=== PATIENT | female | born 1955 | race Caucasian/White ===

== ENCOUNTER 2022-10-20 12:09 | Inpatient (IN) ==
[2022-10-20] MEDS ORDERED: ALBUT/IPRATROP 3MG/0.5MG NEB 3 ML VIAL NEB STA (13:20)
[2022-10-20 13:43] LABS: Hematocrit (blood only) 43.8 % (37.0-47.0); Hemoglobin 15.2 g/dl (12.0-16.0); Mean Corpuscular Hemoglobin 30.2 pg (25.0-34.0); Mean Corpuscular Hgb Conc 34.7 g/dL (32.0-36.0); Mean Corpuscular Volume 87.1 fL (80.0-100.0); Mean Platelet Volume 10.7 fL (9.4-12.4); Platelet Count 308 K/uL (130-400); RDW Coefficient of Variation 14.5 % (11.5-14.5); RDW Standard Deviation 45.7 fL (36.4-46.3); Red Blood Count 5.03 M/uL (4.20-5.40); White Blood Count 23.38 K/ul (4.8-10.8)
[2022-10-20 14:00] LABS: Basophils # (auto) 0.03 K/uL (0-0.2); Basophils % (auto) 0.1 %; Eosinophils # (auto) 0.02 K/uL (0-0.50); Eosinophils % (auto) 0.1 %; Immature Granulocytes # (auto) 0.14 K/uL (0.01-0.20); Immature Granulocytes % (auto) 0.6 %; Lymphocytes % (auto) 4.7 %; Monocytes # (auto) 0.66 K/uL (0.11-0.59); Monocytes % (auto) 2.8 %; Neutrophils # (auto) 21.43 K/uL (1.40-6.50); Neutrophils % (auto) 91.7 %
[2022-10-20 14:01] LABS: Albumin Globulin Ratio 1.8 (0.9-2); Albumin Level 4.2 gm/dl (3.4-5.0); BUN Creatinine Ratio 23.1 (10-20); Bilirubin,Total 0.5 mg/dl (0.2-1.0); Calcium 10.5 mg/dl (8.6-10.3); Est GFR (African American) 54.4 ml/min; Est GFR (Non-African American) 46.9 ml/min; Globulin 2.4 gm/dl (2.5-4.0); Potassium 4.6 mmol/L (3.5-5.1); Total Protein 6.6 gm/dl (6.0-8.3)
[2022-10-20 14:04] LABS: Troponin I High Sensitivity 7.1 pg/ml (0-14)
[2022-10-20 14:38] LABS: Adenovirus PCR Not Detected (NotDetected); Bordetella parapertussis PCR Not Detected (NotDetected); Bordetella pertussis PCR Not Detected (NotDetected); Chlamydia pneumoniae PCR Not Detected (NotDetected); Coronavirus 229E PCR Not Detected (NotDetected); Coronavirus CoV-2 (COVID19)PCR Not Detected (NotDetected); Coronavirus HKU1 PCR Not Detected (NotDetected); Coronavirus NL63 PCR Not Detected (NotDetected); Coronavirus OC43PCR Not Detected (NotDetected); Human Metapneumovirus PCR Not Detected (NotDetected); Influenza A PCR Not Detected (NotDetected); Influenza B PCR Not Detected (NotDetected); Mycoplasma pneumoniae PCR Not Detected (NotDetected); Parainfluenza Virus 1 PCR Not Detected (NotDetected); Parainfluenza Virus 2 PCR Not Detected (NotDetected); Parainfluenza Virus 3 PCR Not Detected (NotDetected); Parainfluenza Virus 4 PCR Not Detected (NotDetected); Respiratory Syncytial VirusPCR Not Detected (NotDetected)
[2022-10-20 14:46] LABS: Rhinovirus/Enterovirus PCR DETECTED (NotDetected)
[2022-10-20] MEDS ORDERED: OPTIRAY 320 125ml IV ONE (15:07)
--- NOTE | 2022-10-20 15:26 | CT Scan Report ---
CT ANGIOGRAM OF THE CHEST CLINICAL HISTORY: Dyspnea COMPARISON STUDY: Chest x-ray dated 10/13/2022. TECHNIQUE: Following the IV administration of 77 cc of Optiray 320, CT angiogram of the chest was per formed from the upper abdomen to the thoracic inlet utilizing the pulmonary embolus protocol. Images are reviewed in the axial, sagittal, and coronal planes. 3-D MIPS images are created and assessed. IV contrast was administered without complication. A dose lowering technique was utilized adhering to the principles of ALARA. CT DOSE: 874.55 mGy.cm FINDINGS: Thyroid: Imaged portions of the thyroid gland are normal in size and attenuation. Thoracic aorta: There is advanced atherosclerotic calcification of the thoracic aorta, which is aida l in caliber and demonstrates bovine variant arch anatomy. No dissection is seen. Pulmonary vasculature: The pulmonary trunk is normal in caliber. There are no filling defects identif ied in main, lobar, or segmental pulmonary branches to suggest pulmonary embolus. Heart: The heart is mildly enlarged and without pericardial effusion. The coronary arteries are dense ly calcified. Lungs and pleural spaces: Evaluation of the lung parenchyma is compromised by motion artifact. Emphys ematous changes observed. The trachea and central airways are clear. There is no airspace consolidati on typical for pneumonia or pleural effusion. Scarring/atelectasis is noted at the lung bases. There is a 9 mm ovoid nodule in the right lower lobe seen on image #129. A branching nodular opacity in the right middle lobe on image #1 measuring 10 likely represents an impacted bronchus. Mediastinum: There is no mediastinal lymphadenopathy. Kaitlin: Clear. Axillae: There is no axillary lymphadenopathy. Upper abdomen: There is a small hiatal hernia. There is mild nodular thickening of the adrenal glands . Partially visualized upper abdominal viscera is otherwise grossly unremarkable. Skeletal structures: The skeletal structures are osteopenic. Degenerative change and mild hyperkyphos is is seen in the thoracic spine. No lytic or blastic bony lesions are seen. IMPRESSION: 1. There is no evidence of pulmonary embolus in the main, lobar, or segmental pulmonary arteries. 2. Emphysema. 3. Cardiomegaly with advanced coronary artery atherosclerosis. 4. There is no airspace consolidation or pleural effusion. 5. There is a 9 mm ovoid right lower lobe pulmonary nodule. This is pathologically indeterminate, and follow-up is recommended as per the Fleischner criteria. See below. Please refer to below summary of Fleischner criteria recommendations for follow-up of incidental CT n odules (Jen Owen, Guidelines for management of small pulmonary nodules detected on CT scans: A janet townsend from the Fleischner [employer], Radiology 237: [phone].) SOLID NODULES Solitary nodule size: <6 mm * low risk patients: no follow-up needed * high risk patients: optional CT at 12 months Solitary nodule size: 6-8 mm * low risk patients: follow-up at 6-12 months, then consider further follow-up at 18-24 months * high risk patients: initial follow-up CT at 6-12 months and then at 18-24 months if no change Solitary nodule size: >8 mm * either low or high risk patients - consider follow-up CT at 3 months, and/or CT-PET, and/or biopsy Multiple nodules size: <6 mm * low risk patients: no routine follow-up * high risk patients: optional CT at 12 months Multiple nodules size: 6-8 mm * low risk patients: follow-up at 3-6 months, then consider further follow-up at 18-24 months * high risk patients: follow-up at 3-6 months, then at 18-24 months if no change Multiple nodules size: >8 mm * low risk patients: follow-up at 3-6 months, then consider further follow-up at 18-24 months * high risk patients: follow-up at 3-6 months, then at 18-24 months if no change Note: newly detected indeterminate nodule in persons 35 years of age or older. * low risk patients: minimal or absent history of smoking and/or other known risk factors * high risk patients: history of smoking or of other known risk factors (e.g. first degree relative with lung cancer, or exposure to asbestos, radon, uranium) * if a nodule up to 8 mm is partly solid or is ground glass further follow-up is required after 24 m onths to exclude possible slow growing adenocarcinoma (YANIRA) SUBSOLID NODULES Solitary pure ground-glass nodule * nodule size <6 mm - no CT follow-up required * nodule size >=6 mm - follow-up CT at 6-12 months, then every 2 years until 5 years Solitary part-solid nodule * nodule size <6 mm - no CT follow-up required * nodule size >=6 mm - follow-up CT at 3-6 months. If unchanged, and solid component remains <6 mm, then annual follow-up for 5 years Multiple subsolid nodules * nodule size <6 mm - follow-up CT at 3-6 months, consider further follow-up at 2 and 4 years if sta ble * nodule size >=6 mm - follow-up CT at 3-6 months, subsequent management based on the most suspiciou s nodule(s) ACT 112: Negative or not required by law. Electronically signed by: Patrick Kathleen M.D. 10/20/2022 3:24 PM
[2022-10-20] MEDS ORDERED: methylPREDNISolone 125 MG/2 ML VIAL IV STA (16:26)
--- NOTE | 2022-10-20 16:28 | History & Physical Report ---
Date of Service October 20, 2022 Assessment & Plan (1) Reactive airway disease with wheezing: Plan: Secondary to entero/rhinovirus positive Suspect underlying COPD/asthma - consider follow up outpatient pulmonary function testing once improved Suspect failed outpatient treatment due to continued smoking, outside air quality and non-compliance with albuterol inhaler Solu-Medrol 125mg IV given in ER, continue 40mg IV BID Duonebs QID Could consider Breo Ellipta once oral thrush improved (2) Hypoxia: Plan: No respiratory distress Suspect due to reactive airway disease as above Aim O2 sats > 88% (3) Oral candidiasis: Plan: Clotrimazole x5/day (4) Vaginal candidiasis: Plan: Fluconazole 150mg PO + Monistat (5) Psoriasis: Plan: Untreated, although recently improved (suspect due to summer weather and recent systemic steroids) Start topical steroids for this as needed (6) Sleep apnea: Plan: Intolerant to CPAP at home, does not use one usually. Will trial CPAP HS here (7) Benign essential hypertension: Plan: Continue amlodipine and losartan (8) Tobacco use disorder: Plan: Nicotine patch ordered Discussed smoking cessation as essential to her improving Plan VTE Prophylaxis - heparin 5000 units SQ q8h Diet - regular Disposition - admit to med/surg Admission and Anticipated Discharge Date Admission Date: October 20, 2022 History of Present Illness Chief Complaint: Shortness of breath Primary Care Provider: Liudmila Josue MD Yu Daigle is a 67 year old female who presents to the ER shortness of cyndee th ongoing for three weeks. No diagnosed COPD or asthma but reports getting "asthma" sometimes when she gets a bad cold. Initially she requested azithromycin on September 13 due to sinus and chest congestion. She reported no significant improvement with this. Subsequently she was placed on prednisone taper and doxycycline on September 29 after visit at her PCP office. CXR at that time did not show a pneumonia. Reportedly using her husbands Combivent inhaler without improvement as well. She was given nebulized duoneb and Solu-medrol IM injection in the office on October 13 and restarted on prednisone taper with Levaquin. She returns today as still wheezing and was advised to go to the ER as oxygen saturation also in the high 80s which is unusual for her. She reports mouth pain for the last week and felt this was due to her albuterol inhaler therefore stopped taking this. Despite her shortness of breath she continues to smoke 1-1.5 packs/day. Allergies Allergy/AdvReac Type Severity Reaction Status Date / Time morphine Allergy Intermediate itching Verified 10/20/22 15:27 oxycodone AdvReac Intermediate Nausea/Vomi Verified 10/20/22 15:27 ting Home Medications Medication Instructions Recorded Confirmed Type cholecalciferol (vitamin D3) 50 2,000 units PO DAILY 02/19/19 10/20/22 History mcg (2,000 unit) capsule lorazepam 0.5 mg tablet (Ativan) 0.5 mg PO BID PRN anxiety #30 tabs 11/24/21 10/20/22 Rx escitalopram oxalate 20 mg tablet 20 mg PO DAILY #90 tabs 03/28/22 10/20/22 Rx amlodipine 10 mg tablet 10 mg PO DAILY #90 tabs 05/18/22 10/20/22 Rx spironolactone 50 mg tablet 50 mg PO QAM #90 tabs 05/18/22 10/20/22 Rx losartan 100 mg tablet 100 mg PO DAILY #90 tabs 06/08/22 10/20/22 Rx levofloxacin 750 mg tablet 750 mg PO DAILY 7 days #7 tabs 10/13/22 10/20/22 Rx prednisone 20 mg tablet See Rx Instructions PO .COMPLEX 10/13/22 10/20/22 Rx #30 tabs aspirin 81 mg chewable tablet 81 mg PO DAILY 10/20/22 10/20/22 History hydrocodone 5 mg-acetaminophen 325 1 tab PO .Q4-6H PRN pain 10/20/22 10/20/22 History mg tablet Past Med/Surg History Medical History Benign essential hypertension Depression with anxiety Sleep apnea Surgical History History of section History of hip replacement Bilateral Family History Other Breast cancer Myocardial infarction Denies family history of Ovarian cancer Prostate cancer Colorectal cancer Social History Smoking Status: Current every day smoker packs per day: 1.5; Second Hand Exposure: Yes; Do You Dip or Chew Tobacco: No; Tobacco Cessation Education Requested by Patient: No Hx Alcohol Use: Yes Alcohol Intake Frequency: Monthly or Less Hx Substance Use: Yes Prescribed Medications: Marijuana Preferred Language: Zambian Visual Impairment: No Limitations Hearing Ability: Normal E Marketing Specialist Required: No Beliefs That Will Affect Care: None marital status: Current Living Situation: Spouse current occupational status: retired current occupation: Homemaker How many Children do You have: 4 Other Information That Helps Us Care for You: No Feels Safe at Home: Yes Childhood Exposure to Second-Hand Smoke: No Diet: regular caffeine: Yes (Tea ) during the past year weight has: remained stable Dental Care, Regularly: No Physical Activity Frequency: 1-2 Times per Week Seatbelt Use: always Sunscreen Use: Yes Do you think of yourself as: straight/heterosexual Gender Identity: Female Assistive Devices: Denture - Upper and Denture - Lower Review of Systems Review of Systems: All systems reviewed & are unremarkable except as noted in HPI & below Physical Exam Constitutional: WD/WN, vitals as above Eyes: PERRL, conjunctivae normal, anicteric sclerae ENMT: external ear and nose normal, oropharynx normal Respiratory: normal respiratory effort; no respiratory distress Auscultation: + wheezes (expiratory throughout); no diminished lung sounds, no crackles, no rales and no rhonchi Cardiovascular: RRR, no murmur, no edema Gastrointestinal (Abdomen): normal bowel sounds, soft, nontender, no hepatosplenomegaly Musculoskeletal: no cyanosis or clubbing, extremities motor strength 5/5 Skin: no rashes, warm and dry Neurologic: moves all extremities and awake; not confused Psychiatric: A+Ox3, euthymic affect Results & Data Results & Data Vital Signs (Past 12 Hours) Vital Signs Temp Pulse Pulse Pulse Resp Resp BP 10/20/22 16:20 75 15 10/20/22 16:10 80 18 10/20/22 16:00 76 19 10/20/22 16:00 135/62 10/20/22 15:50 78 16 10/20/22 15:40 76 24 10/20/22 15:30 81 20 10/20/22 15:21 142/66 H 10/20/22 15:21 81 20 10/20/22 14:40 79 15 10/20/22 14:30 82 19 06/30/23 14:20 89 17 10/20/22 14:10 84 17 10/20/22 14:00 82 17 10/20/22 14:00 127/63 10/20/22 13:50 83 21 10/20/22 13:40 83 19 10/20/22 13:34 83 16 10/20/22 14:20 10/20/22 14:20 10/20/22 14:04 83 18 10/20/22 13:46 80 10/20/22 13:27 93 H 18 10/20/22 12:56 10/20/22 13:05 104 H 18 10/20/22 12:23 36.6 C 102 H 18 123/54 L BP Pulse Ox Pulse Ox O2 Del Method O2 Flow Rate 10/20/22 16:20 94 10/20/22 16:10 95 10/20/22 16:00 94 10/20/22 16:00 10/20/22 15:50 94 10/20/22 15:40 95 10/20/22 15:30 93 10/20/22 15:21 10/20/22 15:21 92 10/20/22 14:40 95 10/20/22 14:30 95 10/20/22 14:20 94 10/20/22 14:10 93 10/20/22 14:00 93 10/20/22 14:00 10/20/22 13:50 92 10/20/22 13:40 98 10/20/22 13:34 98 10/20/22 14:20 93 Nasal Cannula 2 10/20/22 14:20 88 L Room Air 10/20/22 14:04 127/63 90 Room Air 10/20/22 13:46 10/20/22 13:27 138/72 93 Room Air 10/20/22 12:56 93 Room Air 10/20/22 13:05 88 L Room Air 0 10/20/22 12:23 93 Room Air Laboratory Results Abnormal lab results 10/20/22 10/20/22 10/20/22 Range/Units 13:23 13:23 13:23 WBC 23.38 H (4.8-10.8) K/ul Neut # (Auto) 21.43 H (1.40-6.50) K/uL Lymph # (Auto) 1.10 L (1.2-3.4) K/uL Wilcox # (Auto) 0.66 H (0.11-0.59) K/uL Sodium 131 L (136-145) mmol/L Chloride 95 L (98-107) mmol/L BUN 28 H (6-23) mg/dl Creatinine 1.21 H (0.6-1.2) mg/dl BUN/Creatinine Ratio 23.1 H (10-20) Glucose 198 H (70-99(Fasting)) mg/dl Calcium 10.5 H (8.6-10.3) mg/dl AST 12 L (13-39) U/L Globulin 2.4 L (2.5-4.0) gm/dl Entero/Rhino (PCR) DETECTED A* (NotDetected) Diagnostic Findings XR chest 2V PA/lateral HISTORY: 67 years-old Female R06.2 - Wheezing acute shortness of breath COMPARISON: 09/29/2022 TECHNIQUE: PA and lateral views of the chest FINDINGS: Cardiac silhouette is enlarged. Atherosclerosis of the aorta. No pneumothorax, pleural effusion, airspace consolidation or pulmonary edema. Degenerative changes of the shoulders and spine. IMPRESSION: No acute process. CT ANGIOGRAM OF THE CHEST CLINICAL HISTORY: Dyspnea COMPARISON STUDY: Chest x-ray dated 10/13/2022. TECHNIQUE: Following the IV administration of 77 cc of Optiray 320, CT angiogram of the chest was performed from the upper abdomen to the thoracic inlet utilizing the pulmonary embolus protocol. Images are reviewed in the axial, sagittal, and coronal planes. 3-D MIPS images are created and assessed. IV contrast was administered without complication. A dose lowering technique was utilized adhering to the principles of ALARA. CT DOSE: 874.55 mGy.cm FINDINGS: Thyroid: Imaged portions of the thyroid gland are normal in size and attenuation. Thoracic aorta: There is advanced atherosclerotic calcification of the thoracic aorta, which is normal in caliber and demonstrates bovine variant arch anatomy. No dissection is seen. Pulmonary vasculature: The pulmonary trunk is normal in caliber. There are no filling defects identified in main, lobar, or segmental pulmonary branches to suggest pulmonary embolus. Heart: The heart is mildly enlarged and without pericardial effusion. The coronary arteries are densely calcified. Lungs and pleural spaces: Evaluation of the lung parenchyma is compromised by motion artifact. Emphysematous changes observed. The trachea and central airways are clear. There is no airspace consolidation typical for pneumonia or pleural effusion. Scarring/atelectasis is noted at the lung bases. There is a 9 mm ovoid nodule in the right lower lobe seen on image #129. A branching nodular opacity in the right middle lobe on image #1 measuring 10 likely represents an impacted bronchus. Mediastinum: There is no mediastinal lymphadenopathy. Kaitlin: Clear. Axillae: There is no axillary lymphadenopathy. Upper abdomen: There is a small hiatal hernia. There is mild nodular thickening of the adrenal glands. Partially visualized upper abdominal viscera is otherwise grossly unremarkable. Skeletal structures: The skeletal structures are osteopenic. Degenerative change and mild hyperkyphosis is seen in the thoracic spine. No lytic or blastic bony lesions are seen. IMPRESSION: 1. There is no evidence of pulmonary embolus in the main, lobar, or segmental pulmonary arteries. 2. Emphysema. 3. Cardiomegaly with advanced coronary artery atherosclerosis. 4. There is no airspace consolidation or pleural effusion. 5. There is a 9 mm ovoid right lower lobe pulmonary nodule. This is pathologically indeterminate, and follow-up is recommended as per the Fleischner criteria. See below. Medications Administered ER Medications Given: Duoneb 3ml Methylprednisolone 125mg IV ECG Rate (beats per minute): 88 Rhythm: sinus with SA Findings: no acute ischemic change Comparison ECG Date: no prior available Change: the following changes noted (December 20, 2010) Code Status & VTE Plan Code Status Full VTE Prophylaxis Plan VTE Prophylaxis will be ordered: Yes PG Care Time/CCT Total # of Minutes Spent Total Time Spent with Patient: Total time spent is greater than 50% in coordination of care (as documented) at patient's floor/unit and/or counseling patient: Coding Level of Care Code 87705 INT INP/OBS CARE 3/75MIN Diagnoses Reactive airway disease with wheezing J45.909 Hypoxia R09.02 Oral candidiasis B37.0 Vaginal candidiasis B37.31 Psoriasis L40.9 Sleep apnea G47.30 Benign essential hypertension I10 Tobacco use disorder F17.200
[2022-10-20] MEDS ORDERED: NYSTATIN SUSP 500,000 U/5 ML UDC PO STA (16:44)
--- NOTE | 2022-10-20 17:01 | Emergency Department Note ---
ED Provider Note History of Present Illness Chief Complaint: Respiratory Problems Stated Complaint: RESP. ISSUES, TO BE ADMITTED,DOC REF Time Seen by Provider: 10/20/22 12:27 Source: patient Mode of arrival: ambulatory Limitations: no limitations This patient is a 67-year-old female who presents to the emergency department for evaluation of shortness of breath. Patient states the symptoms have been ongoing for about 3 weeks. She has been seen as an outpatient and has been on several antibiotics, azithromycin, doxycycline and Levaquin. She is on her second course of steroids. She has been seeing her primary care provider for the symptoms. She went there today and they referred her here for possible admission due to low oxygen levels in the office. Patient does report a history of COPD. She is a smoker. She has been trying to stay inside and avoid going outside due to the decreased air quality over the past few days. She reports that she is short of breath with any exertion and is very winded going up the stairs. She denies any chest pain. She denies any fever/chills. She has had a persistent cough and nasal congestion. Home Medications Medication Instructions Recorded Confirmed Type cholecalciferol (vitamin D3) 50 2,000 units PO DAILY 02/19/19 10/20/22 History mcg (2,000 unit) capsule lorazepam 0.5 mg tablet (Ativan) 0.5 mg PO BID PRN anxiety #30 tabs 11/24/21 10/20/22 Rx escitalopram oxalate 20 mg tablet 20 mg PO DAILY #90 tabs 03/28/22 10/20/22 Rx amlodipine 10 mg tablet 10 mg PO DAILY #90 tabs 05/18/22 10/20/22 Rx spironolactone 50 mg tablet 50 mg PO QAM #90 tabs 05/18/22 10/20/22 Rx losartan 100 mg tablet 100 mg PO DAILY #90 tabs 06/08/22 10/20/22 Rx levofloxacin 750 mg tablet 750 mg PO DAILY 7 days #7 tabs 10/13/22 10/20/22 Rx prednisone 20 mg tablet See Rx Instructions PO .COMPLEX 10/13/22 10/20/22 Rx #30 tabs aspirin 81 mg chewable tablet 81 mg PO DAILY 10/20/22 10/20/22 History hydrocodone 5 mg-acetaminophen 325 1 tab PO .Q4-6H PRN pain 10/20/22 10/20/22 History mg tablet Allergies Allergy/AdvReac Type Severity Reaction Status Date / Time morphine Allergy Intermediate itching Verified 10/20/22 15:27 oxycodone AdvReac Intermediate Nausea/Vomi Verified 10/20/22 15:27 ting Past Med/Surg History Medical History Benign essential hypertension Depression with anxiety Sleep apnea Surgical History History of section History of hip replacement Bilateral Family History Other Breast cancer Myocardial infarction Denies family history of Ovarian cancer Prostate cancer Colorectal cancer Social History Smoking Status: Current every day smoker packs per day: 1.5; Second Hand Exposure: Yes; Do You Dip or Chew Tobacco: No; Tobacco Cessation Education Requested by Patient: No Hx Alcohol Use: Yes Alcohol Intake Frequency: Monthly or Less Hx Substance Use: Yes Prescribed Medications: Marijuana Preferred Language: Hebrew Visual Impairment: No Limitations Hearing Ability: Normal Safe And Vault Service Mechanic Required: No Beliefs That Will Affect Care: None marital status: Current Living Situation: Spouse current occupational status: retired current occupation: Homemaker How many Children do You have: 4 Other Information That Helps Us Care for You: No Feels Safe at Home: Yes Childhood Exposure to Second-Hand Smoke: No Diet: regular caffeine: Yes (Tea ) during the past year weight has: remained stable Dental Care, Regularly: No Physical Activity Frequency: 1-2 Times per Week Seatbelt Use: always Sunscreen Use: Yes Do you think of yourself as: straight/heterosexual Gender Identity: Female Assistive Devices: Denture - Upper and Denture - Lower Physical Exam Vital Signs Vital Signs - 24 hr 10/20/22 12:23 10/20/22 13:05 10/20/22 12:56 Temperature 36.6 C Temperature Source Temporal Artery Scan Pulse Rate 102 H Pulse Rate [Apical] Pulse Rate [Exercises] 104 H Pulse Rate from SpO2 Sensor Respiratory Rate 18 Respiratory Rate [Exercises] 18 Respiratory Effort / Characteristics Non-Labored Respiratory Depth Normal Blood Pressure 123/54 L Blood Pressure [Left Arm] Blood Pressure Mean 77 Blood Pressure Mean [Left Arm] Pulse Oximetry 93 93 Pulse Oximetry [Exercises] 88 L Oxygen Delivery Method Room Air Room Air Room Air Oxygen Flow Rate 0 Sepsis Recent Fever Within 48 Hours No Sepsis New/Unexplained Change in Mental Status No Sepsis Action Taken by Nursing No Action Required 10/20/22 13:27 10/20/22 13:46 10/20/22 14:04 Temperature Temperature Source Pulse Rate 80 Pulse Rate [Apical] 93 H 83 Pulse Rate [Exercises] Pulse Rate from SpO2 Sensor Respiratory Rate 18 18 Respiratory Rate [Exercises] Respiratory Effort / Characteristics Respiratory Depth Normal Blood Pressure Blood Pressure [Left Arm] 138/72 127/63 Blood Pressure Mean Blood Pressure Mean [Left Arm] 94 84 Pulse Oximetry 93 90 Pulse Oximetry [Exercises] Oxygen Delivery Method Room Air Room Air Oxygen Flow Rate Sepsis Recent Fever Within 48 Hours Sepsis New/Unexplained Change in Mental Status Sepsis Action Taken by Nursing 10/20/22 14:20 10/20/22 14:20 10/20/22 13:34 Temperature Temperature Source Pulse Rate 83 Pulse Rate [Apical] Pulse Rate [Exercises] Pulse Rate from SpO2 Sensor 82 Respiratory Rate 16 Respiratory Rate [Exercises] Respiratory Effort / Characteristics Respiratory Depth Blood Pressure Blood Pressure [Left Arm] Blood Pressure Mean Blood Pressure Mean [Left Arm] Pulse Oximetry 88 L 93 98 Pulse Oximetry [Exercises] Oxygen Delivery Method Room Air Nasal Cannula Oxygen Flow Rate 2 Sepsis Recent Fever Within 48 Hours Sepsis New/Unexplained Change in Mental Status Sepsis Action Taken by Nursing 10/20/22 13:40 10/20/22 13:50 10/20/22 14:00 Temperature Temperature Source Pulse Rate 83 83 Pulse Rate [Apical] Pulse Rate [Exercises] Pulse Rate from SpO2 Sensor 80 83 Respiratory Rate 19 21 Respiratory Rate [Exercises] Respiratory Effort / Characteristics Respiratory Depth Blood Pressure 127/63 Blood Pressure [Left Arm] Blood Pressure Mean 93 Blood Pressure Mean [Left Arm] Pulse Oximetry 98 92 Pulse Oximetry [Exercises] Oxygen Delivery Method Oxygen Flow Rate Sepsis Recent Fever Within 48 Hours Sepsis New/Unexplained Change in Mental Status Sepsis Action Taken by Nursing 10/20/22 14:00 10/20/22 14:10 10/20/22 14:20 Temperature Temperature Source Pulse Rate 82 84 89 Pulse Rate [Apical] Pulse Rate [Exercises] Pulse Rate from SpO2 Sensor 82 83 88 Respiratory Rate 17 17 17 Respiratory Rate [Exercises] Respiratory Effort / Characteristics Respiratory Depth Blood Pressure Blood Pressure [Left Arm] Blood Pressure Mean Blood Pressure Mean [Left Arm] Pulse Oximetry 93 93 94 Pulse Oximetry [Exercises] Oxygen Delivery Method Oxygen Flow Rate Sepsis Recent Fever Within 48 Hours Sepsis New/Unexplained Change in Mental Status Sepsis Action Taken by Nursing 10/20/22 14:30 10/20/22 14:40 10/20/22 15:21 Temperature Temperature Source Pulse Rate 82 79 81 Pulse Rate [Apical] Pulse Rate [Exercises] Pulse Rate from SpO2 Sensor 80 77 80 Respiratory Rate 19 15 20 Respiratory Rate [Exercises] Respiratory Effort / Characteristics Respiratory Depth Blood Pressure Blood Pressure [Left Arm] Blood Pressure Mean Blood Pressure Mean [Left Arm] Pulse Oximetry 95 95 92 Pulse Oximetry [Exercises] Oxygen Delivery Method Oxygen Flow Rate Sepsis Recent Fever Within 48 Hours Sepsis New/Unexplained Change in Mental Status Sepsis Action Taken by Nursing 10/20/22 15:21 10/20/22 15:30 10/20/22 15:40 Temperature Temperature Source Pulse Rate 81 76 Pulse Rate [Apical] Pulse Rate [Exercises] Pulse Rate from SpO2 Sensor 81 76 Respiratory Rate 20 24 Respiratory Rate [Exercises] Respiratory Effort / Characteristics Respiratory Depth Blood Pressure 142/66 H Blood Pressure [Left Arm] Blood Pressure Mean 97 Blood Pressure Mean [Left Arm] Pulse Oximetry 93 95 Pulse Oximetry [Exercises] Oxygen Delivery Method Oxygen Flow Rate Sepsis Recent Fever Within 48 Hours Sepsis New/Unexplained Change in Mental Status Sepsis Action Taken by Nursing 10/20/22 15:50 10/20/22 16:00 10/20/22 16:00 Temperature Temperature Source Pulse Rate 78 76 Pulse Rate [Apical] Pulse Rate [Exercises] Pulse Rate from SpO2 Sensor 78 76 Respiratory Rate 16 19 Respiratory Rate [Exercises] Respiratory Effort / Characteristics Respiratory Depth Blood Pressure 135/62 Blood Pressure [Left Arm] Blood Pressure Mean 92 Blood Pressure Mean [Left Arm] Pulse Oximetry 94 94 Pulse Oximetry [Exercises] Oxygen Delivery Method Oxygen Flow Rate Sepsis Recent Fever Within 48 Hours Sepsis New/Unexplained Change in Mental Status Sepsis Action Taken by Nursing 10/20/22 16:10 10/20/22 16:20 10/20/22 16:30 Temperature Temperature Source Pulse Rate 80 75 78 Pulse Rate [Apical] Pulse Rate [Exercises] Pulse Rate from SpO2 Sensor 79 75 77 Respiratory Rate 18 15 16 Respiratory Rate [Exercises] Respiratory Effort / Characteristics Respiratory Depth Blood Pressure Blood Pressure [Left Arm] Blood Pressure Mean Blood Pressure Mean [Left Arm] Pulse Oximetry 95 94 94 Pulse Oximetry [Exercises] Oxygen Delivery Method Oxygen Flow Rate Sepsis Recent Fever Within 48 Hours Sepsis New/Unexplained Change in Mental Status Sepsis Action Taken by Nursing VITALS: Vitals are noted on the nurse's note and reviewed by myself. GENERAL: This is a 67-year-old female, in no acute distress. SKIN: The skin was without rashes. EARS: External auditory canals clear, tympanic membranes pearly lopez without erythema or effusion bilaterally. MOUTH: Mucous membranes moist. NECK: Supple without nuchal rigidity. No lymphadenopathy. HEART: Regular rate and rhythm without murmurs gallops or rubs. LUNGS: Diffuse wheezes throughout. NEURO: Patient was alert and oriented to person place and time. Course Administered Medications Albuterol (Albut/Ipratrop 3mg/0.5mg Neb 3 Ml Vial) 3 ml NEB Q4R CYNDY; Protocol Stop: 11/19/22 18:59 Last Admin: 10/20/22 19:37 Dose: 3 ml Documented By: HMR Discontinued Medications Albuterol (Albut/Ipratrop 3mg/0.5mg Neb 3 Ml Vial) 3 ml NEB NOW STA; Protocol Stop: 10/20/22 13:21 Last Admin: 10/20/22 13:30 Dose: 3 ml Documented By: TUNDE Sodium Chloride (Nss 1000ml) 1,000 mls @ 999 mls/hr IV .Q1H1M ONE Stop: 10/20/22 18:27 Last Admin: 10/20/22 19:22 Dose: 999 mls/hr Documented By: ASSISTED Ioversol (Optiray 320 125ml) 77 ml IV ONCE ONE Stop: 10/20/22 15:08 Last Admin: 10/20/22 15:07 Dose: 77 ml Documented By: PLB Methylprednisolone (Methylprednisolone 125 Mg/2 Ml Vial) 125 mg IV NOW STA Stop: 10/20/22 16:27 Last Admin: 10/20/22 17:15 Dose: 125 mg Documented By: BCN Medical Decision Making Differential Diagnosis Reactive airway disease, pneumonia, pneumothorax, COPD, CHF, infections, cardiac ischemia, pulmonary embolism, musculoskeletal, gastrointestinal, as well as other pathologies. Home Medications was personally reviewed by me Laboratory Data Attestation: I reviewed the patient's lab results. 10/20/22 13:23 10/20/22 13:23 Lab Results 10/20/22 10/20/22 10/20/22 Range/Units 13:23 13:23 13:23 WBC 23.38 H (4.8-10.8) K/ul RBC 5.03 (4.20-5.40) M/uL Hgb 15.2 (12.0-16.0) g/dl Hct 43.8 (37.0-47.0) % MCV 87.1 (80.0-100.0) fL MCH 30.2 (25.0-34.0) pg MCHC 34.7 (32.0-36.0) g/dL RDW Std Deviation 45.7 (36.4-46.3) fL RDW Coeff of [place] 14.5 (11.5-14.5) % Plt Count 308 (130-400) K/uL MPV 10.7 (9.4-12.4) fL Immature Gran % (Auto) 0.6 % Neut % (Auto) 91.7 % Lymph % (Auto) 4.7 % [place] % (Auto) 2.8 % Eos % (Auto) 0.1 % Baso % (Auto) 0.1 % Neut # (Auto) 21.43 H (1.40-6.50) K/uL Lymph # (Auto) 1.10 L (1.2-3.4) K/uL [place] # (Auto) 0.66 H (0.11-0.59) K/uL Eos # (Auto) 0.02 (0-0.50) K/uL Baso # (Auto) 0.03 (0-0.2) K/uL Immature Gran # (Auto) 0.14 (0.01-0.20) K/uL Sodium 131 L (136-145) mmol/L Potassium 4.6 (3.5-5.1) mmol/L Chloride 95 L (98-107) mmol/L Carbon Dioxide 28 (21-32) mmol/L Anion Gap 8 (3-11) BUN 28 H (6-23) mg/dl Creatinine 1.21 H (0.6-1.2) mg/dl Est Cr Clr Drug Dosing 44.0 ml/min Est GFR ( Amer) 54.4 ml/min Est GFR (Non-Af Amer) 46.9 ml/min BUN/Creatinine Ratio 23.1 H (10-20) Glucose 198 H (70-99(Fasting)) mg/dl Calcium 10.5 H (8.6-10.3) mg/dl Total Bilirubin 0.5 (0.2-1.0) mg/dl AST 12 L (13-39) U/L ALT 29 (7-52) U/L Alkaline Phosphatase 69 (34-104) U/L Troponin I High Sens 7.1 (0-14) pg/ml Total Protein 6.6 (6.0-8.3) gm/dl Albumin 4.2 (3.4-5.0) gm/dl Globulin 2.4 L (2.5-4.0) gm/dl Albumin/Globulin Ratio 1.8 (0.9-2) Procalcitonin < 0.05 (0-0.5) ng/ml Adenovirus (PCR) (NotDetected) B. pertussis DNA (PCR) (NotDetected) B.parapertussis DNA PCR (NotDetected) C. pneumoniae DNA (PCR) (NotDetected) Coronavirus OC43 (PCR) (NotDetected) Coronavirus HKU1 (PCR) (NotDetected) Coronavirus 229E (PCR) (NotDetected) SARS-CoV-2 (PCR) (NotDetected) Coronavirus NL63 (PCR) (NotDetected) Human Metapneumovir PCR (NotDetected) Influenza Type A (PCR) (NotDetected) Influenza Type B (PCR) (NotDetected) M. pneumoniae (PCR) (NotDetected) Parainfluenza 1 (PCR) (NotDetected) Parainfluenza 2 (PCR) (NotDetected) Parainfluenza 3 (PCR) (NotDetected) Parainfluenza 4 (PCR) (NotDetected) RSV (PCR) (NotDetected) Entero/Rhino (PCR) (NotDetected) 10/20/22 Range/Units 13:23 WBC (4.8-10.8) K/ul RBC (4.20-5.40) M/uL Hgb (12.0-16.0) g/dl Hct (37.0-47.0) % MCV (80.0-100.0) fL MCH (25.0-34.0) pg MCHC (32.0-36.0) g/dL RDW Std Deviation (36.4-46.3) fL RDW Coeff of [place] (11.5-14.5) % Plt Count (130-400) K/uL MPV (9.4-12.4) fL Immature Gran % (Auto) % Neut % (Auto) % Lymph % (Auto) % [place] % (Auto) % Eos % (Auto) % Baso % (Auto) % Neut # (Auto) (1.40-6.50) K/uL Lymph # (Auto) (1.2-3.4) K/uL [place] # (Auto) (0.11-0.59) K/uL Eos # (Auto) (0-0.50) K/uL Baso # (Auto) (0-0.2) K/uL Immature Gran # (Auto) (0.01-0.20) K/uL Sodium (136-145) mmol/L Potassium (3.5-5.1) mmol/L Chloride (98-107) mmol/L Carbon Dioxide (21-32) mmol/L Anion Gap (3-11) BUN (6-23) mg/dl Creatinine (0.6-1.2) mg/dl Est Cr Clr Drug Dosing ml/min Est GFR ( Amer) ml/min Est GFR (Non-Af Amer) ml/min BUN/Creatinine Ratio (10-20) Glucose (70-99(Fasting)) mg/dl Calcium (8.6-10.3) mg/dl Total Bilirubin (0.2-1.0) mg/dl AST (13-39) U/L ALT (7-52) U/L Alkaline Phosphatase (34-104) U/L Troponin I High Sens (0-14) pg/ml Total Protein (6.0-8.3) gm/dl Albumin (3.4-5.0) gm/dl Globulin (2.5-4.0) gm/dl Albumin/Globulin Ratio (0.9-2) Procalcitonin (0-0.5) ng/ml Adenovirus (PCR) Not Detected (NotDetected) B. pertussis DNA (PCR) Not Detected (NotDetected) B.parapertussis DNA PCR Not Detected (NotDetected) C. pneumoniae DNA (PCR) Not Detected (NotDetected) Coronavirus OC43 (PCR) Not Detected (NotDetected) Coronavirus HKU1 (PCR) Not Detected (NotDetected) Coronavirus 229E (PCR) Not Detected (NotDetected) SARS-CoV-2 (PCR) Not Detected (NotDetected) Coronavirus NL63 (PCR) Not Detected (NotDetected) Human Metapneumovir PCR Not Detected (NotDetected) Influenza Type A (PCR) Not Detected (NotDetected) Influenza Type B (PCR) Not Detected (NotDetected) M. pneumoniae (PCR) Not Detected (NotDetected) Parainfluenza 1 (PCR) Not Detected (NotDetected) Parainfluenza 2 (PCR) Not Detected (NotDetected) Parainfluenza 3 (PCR) Not Detected (NotDetected) Parainfluenza 4 (PCR) Not Detected (NotDetected) RSV (PCR) Not Detected (NotDetected) Entero/Rhino (PCR) DETECTED A* (NotDetected) Imaging Data Attestation: I personally reviewed and interpreted this imaging study as follows: Radiologist's Impression: Chest CTA 10/20/22 12:53 CT ANGIOGRAM OF THE CHEST CLINICAL HISTORY: Dyspnea COMPARISON STUDY: Chest x-ray dated 10/13/2022. TECHNIQUE: Following the IV administration of 77 cc of Optiray 320, CT angiogram of the chest was performed from the upper abdomen to the thoracic inlet utilizing the pulmonary embolus protocol. Images are reviewed in the axial, sagittal, and coronal planes. 3-D MIPS images are created and assessed. IV contrast was administered without complication. A dose lowering technique was utilized adhering to the principles of ALARA. CT DOSE: 874.55 mGy.cm FINDINGS: Thyroid: Imaged portions of the thyroid gland are normal in size and attenuation. Thoracic aorta: There is advanced atherosclerotic calcification of the thoracic aorta, which is normal in caliber and demonstrates bovine variant arch anatomy. No dissection is seen. Pulmonary vasculature: The pulmonary trunk is normal in caliber. There are no f illing defects identified in main, lobar, or segmental pulmonary branches to suggest pulmonary embolus. Heart: The heart is mildly enlarged and without pericardial effusion. The coronary arteries are densely calcified. Lungs and pleural spaces: Evaluation of the lung parenchyma is compromised by motion artifact. Emphysematous changes observed. The trachea and central airways are clear. There is no airspace consolidation typical for pneumonia or pleural effusion. Scarring/atelectasis is noted at the lung bases. There is a 9 mm ovoid nodule in the right lower lobe seen on image #129. A branching nodular opacity in the right middle lobe on image #1 measuring 10 likely represents an impacted bronchus. Mediastinum: There is no mediastinal lymphadenopathy. Kaitlin: Clear. Axillae: There is no axillary lymphadenopathy. Upper abdomen: There is a small hiatal hernia. There is mild nodular thickening of the adrenal glands. Partially visualized upper abdominal viscera is otherwise grossly unremarkable. Skeletal structures: The skeletal structures are osteopenic. Degenerative change and mild hyperkyphosis is seen in the thoracic spine. No lytic or blastic bony lesions are seen. IMPRESSION: 1. There is no evidence of pulmonary embolus in the main, lobar, or segmental pulmonary arteries. 2. Emphysema. 3. Cardiomegaly with advanced coronary artery atherosclerosis. 4. There is no airspace consolidation or pleural effusion. 5. There is a 9 mm ovoid right lower lobe pulmonary nodule. This is pathologically indeterminate, and follow-up is recommended as per the Fleischner criteria. See below. Please refer to below summary of Fleischner criteria recommendations for follow- up of incidental CT nodules (Jen Owen, Guidelines for management of small pulmonary nodules detected on CT scans: A statement from the Fleischner Society, Radiology 237: [phone].) SOLID NODULES Solitary nodule size: <6 mm * low risk patients: no follow-up needed * high risk patients: optional CT at 12 months Solitary nodule size: 6-8 mm * low risk patients: follow-up at 6-12 months, then consider further follow-up at 18-24 months * high risk patients: initial follow-up CT at 6-12 months and then at 18-24 months if no change Solitary nodule size: >8 mm * either low or high risk patients - consider follow-up CT at 3 months, and/or CT-PET, and/or biopsy Multiple nodules size: <6 mm * low risk patients: no routine follow-up * high risk patients: optional CT at 12 months Multiple nodules size: 6-8 mm * low risk patients: follow-up at 3-6 months, then consider further follow-up at 18-24 months * high risk patients: follow-up at 3-6 months, then at 18-24 months if no change Multiple nodules size: >8 mm * low risk patients: follow-up at 3-6 months, then consider further follow-up at 18-24 months * high risk patients: follow-up at 3-6 months, then at 18-24 months if no change Note: newly detected indeterminate nodule in persons 35 years of age or older. * low risk patients: minimal or absent history of smoking and/or other known risk factors * high risk patients: history of smoking or of other known risk factors (e.g. first degree relative with lung cancer, or exposure to asbestos, radon, uranium) * if a nodule up to 8 mm is partly solid or is ground glass further follow-up is required after 24 months to exclude possible slow growing adenocarcinoma (YANIRA) SUBSOLID NODULES Solitary pure ground-glass nodule * nodule size <6 mm - no CT follow-up required * nodule size >=6 mm - follow-up CT at 6-12 months, then every 2 years until 5 years Solitary part-solid nodule * nodule size <6 mm - no CT follow-up required * nodule size >=6 mm - follow-up CT at 3-6 months. If unchanged, and solid component remains <6 mm, then annual follow-up for 5 years Multiple subsolid nodules * nodule size <6 mm - follow-up CT at 3-6 months, consider further follow-up at 2 and 4 years if stable * nodule size >=6 mm - follow-up CT at 3-6 months, subsequent management based on the most suspicious nodule(s) ACT 112: Negative or not required by law. Electronically signed by: Patrick Kathleen M.D. 10/20/2022 3:24 PM ECG Data Attestation: I personally reviewed and interpreted this ECG as follows: Indication: + SOB/dyspnea Rate (beats per minute): 88 Rhythm: + normal sinus ECG [place]: + Normal ECG ST segments: + Normal ST segments Change: no significant change MDM Narrative Continuous cardiac rehabilitation specialist: Order was placed for continuous cardiac rehabilitation specialist. Patient was placed on the cardiac rehabilitation specialist. Patient was noted to be in normal sinus rhythm at an initial rate of 80 bpm. The patient is a 67-year-old female who presents today complaining of shortness of breath. Symptoms have been ongoing for several weeks and patient has been on 3 rounds of antibiotics as well as steroids without improvement. A CT angiogram of the chest here was negative. Labs revealed a leukocytosis of 23,000 which is quite elevated, even given her recent steroid prescription. She was found to be positive for enterovirus/rhinovirus. Pulse ox did drop down to 88% and patient required supplemental oxygen. For this reason she will be admitted for further evaluation of a COPD exacerbation. She was given a dose of Solu-Medrol as well as a DuoNeb here. Case was discussed with the [facility] hospitalist who agreed to evaluate the patient for further care Impression COPD exacerbation, Leukocytosis Discharge Plan Visit Data Chief Complaint: Respiratory Problems Stated Complaint: RESP. ISSUES, TO BE ADMITTED,DOC REF ED Provider: Maryjane Sanchez ED Midlevel Provider: Annette Youssef Discharge Problem: COPD exacerbation, Leukocytosis Patient Disposition: Admitted As Inpatient Discharge Instructions Interventions: ED Discharge Assessment Last Done: 10/20/22 17:41
[2022-10-20] MEDS ORDERED: FLUCONAZOLE 50 MG TAB PO STA (17:23)
[2022-10-20] MEDS ORDERED: SODIUM CHLORIDE 0.9% 1000ML 1,000 ML IV ONE (17:27)
[2022-10-20] MEDS ORDERED: LORazepam 0.5 MG TAB PO PRN (18:12)
[2022-10-20] MEDS ORDERED: ACETAMINOPHEN 325 MG TAB PO PRN (18:12)
[2022-10-20] MEDS ORDERED: HYDROCODONE/ACETAMOPHEN 5/325MG TAB PO PRN (18:12)
[2022-10-20] MEDS ORDERED: BETAMETHASONE DIP AUG (DIPROLENE) 0.05% CR 50 GM TUBE EXT PRN (18:12)
[2022-10-20] MEDS ORDERED: ONDANSETRON INJ 2 MG/ML 2 ML VIAL IV PRN (18:12)
[2022-10-20] MEDS ORDERED: NICOTINE POLACRILEX 2 MG GUM MT PRN (18:12)
[2022-10-20] MEDS: ALBUT/IPRATROP 3MG/0.5MG NEB 3 ML VIAL NEB SCH ×2 (19:37→22:34)
[2022-10-20] MEDS: NICOTINE 21 MG/24 HR TDSY TD SCH (21:02)
[2022-10-20] MEDS: CLOTRIMAZOLE 10 MG TROCHE BUCCAL SCH ×2 (21:02→23:39)
[2022-10-20] MEDS: HEPARIN SOD 5,000 UNIT/0.5 ML VIAL SQ SCH (21:02)
[2022-10-20] MEDS: methylPREDNISolone 40 MG in SYRINGE 0 ML IV SCH (21:02)
[2022-10-20] MEDS: MICONAZOLE NITRATE 2% VAG CR 45 GM TUBE PV SCH (21:06)
[2022-10-21] MEDS: ALBUT/IPRATROP 3MG/0.5MG NEB 3 ML VIAL NEB SCH ×5 (03:00→19:39)
[2022-10-21] MEDS: HEPARIN SOD 5,000 UNIT/0.5 ML VIAL SQ SCH ×3 (06:22→21:59)
[2022-10-21] MEDS: CLOTRIMAZOLE 10 MG TROCHE BUCCAL SCH ×5 (08:29→22:00)
[2022-10-21] MEDS: ESCITALOPRAM OXALATE 20 MG TAB PO SCH (08:30)
[2022-10-21] MEDS: amLODIPine BESYLATE 5 MG TAB PO SCH (08:30)
[2022-10-21] MEDS: LOSARTAN POTASSIUM 50 MG TAB PO SCH (08:30)
[2022-10-21] MEDS: DOCUSATE SODIUM 100 MG CAP PO SCH ×2 (08:30→20:27)
[2022-10-21] MEDS: ASPIRIN 81 MG ECTAB PO SCH (08:30)
[2022-10-21] MEDS: SPIRONOLACTONE 25 MG TAB PO SCH (08:30)
[2022-10-21] MEDS: NICOTINE 21 MG/24 HR TDSY TD SCH (08:31)
[2022-10-21] MEDS: methylPREDNISolone 40 MG in SYRINGE 0 ML IV SCH ×2 (08:31→20:28)
[2022-10-21 08:59] LABS: Hematocrit (blood only) 42.6 % (37.0-47.0); Hemoglobin 14.7 g/dl (12.0-16.0); Mean Corpuscular Hemoglobin 30.4 pg (25.0-34.0); Mean Corpuscular Hgb Conc 34.5 g/dL (32.0-36.0); Mean Platelet Volume 10.5 fL (9.4-12.4); Platelet Count 289 K/uL (130-400); RDW Coefficient of Variation 14.3 % (11.5-14.5); RDW Standard Deviation 46.4 fL (36.4-46.3); Red Blood Count 4.84 M/uL (4.20-5.40); White Blood Count 14.29 K/ul (4.8-10.8)
[2022-10-21 09:14] LABS: BUN Creatinine Ratio 22.8 (10-20); Calcium 9.7 mg/dl (8.6-10.3); Creatinine Clr Calc Pharmacy 52.7 ml/min; Est GFR (African American) 67.7 ml/min; Est GFR (Non-African American) 58.4 ml/min; Potassium 4.3 mmol/L (3.5-5.1)
[2022-10-21 09:22] LABS: Basophils # (auto) 0.01 K/uL (0-0.2); Basophils % (auto) 0.1 %; Immature Granulocytes # (auto) 0.12 K/uL (0.01-0.20); Immature Granulocytes % (auto) 0.8 %; Lymphocytes # (auto) 0.93 K/uL (1.2-3.4); Lymphocytes % (auto) 6.5 %; Monocytes # (auto) 0.35 K/uL (0.11-0.59); Monocytes % (auto) 2.4 %; Neutrophils # (auto) 12.88 K/uL (1.40-6.50); Neutrophils % (auto) 90.2 %
--- NOTE | 2022-10-21 11:01 | Hospitalist Progress Note ---
Date of Service October 21, 2022 Assessment & Plan (1) Reactive airway disease with wheezing: Plan: Acute/unstable - moderate risk - Secondary to entero/rhinovirus positive - Suspect underlying COPD - would benefit from outpatient pulmonary function testing following acute exacerbation in ~6 weeks - Suspect failed outpatient treatment due to continued smoking, outside air quality and non-compliance with albuterol inhaler - Solu-Medrol 125mg IV given in ER, continue 40mg IV BID - Duonebs QID - likely contributing to her jitteriness - Would consider adding ICS/LABA combo inhaler following d/c - Add mucolytics and flutter valve - Noted leukocytosis on admit is likely demargination from steroids course as outpatient - CBC reviewed today, wbc decreased to 14 from 23 (2) Hypoxia: Plan: Acute respiratory failure with hypoxia - high risk - Currently w/o respiratory distress - Suspect due to reactive airway disease as above - Aim O2 sats > 88%, currently not requiring O2, pulse ox 91% - Would perform ambulatory pulse ox prior to dc to ensure she does not desaturate with ambulation (3) Oral candidiasis: Plan: Acute/unstable - Clotrimazole x5/day - Due to multiple recent courses of abx - No further abx indicated (4) Vaginal candidiasis: Plan: Acute/unstable - Fluconazole 150mg PO + Monistat (5) Psoriasis: Plan: Chronic/unstable - Untreated, although recently improved (suspect due to summer weather and recent systemic steroids) - Start topical steroids for this as needed (6) Sleep apnea: Plan: Chronic/unstable - Intolerant to CPAP at home, does not use one usually. - Can trial our cpap in house (7) Benign essential hypertension: Plan: Chronic/stable - Continue amlodipine, spironolactone, and losartan - Would consider changing from spironolactone to HCTZ d/t risk of hyperkalemia with the spironolactone + losartan combo - defer to pcp (8) Tobacco use disorder: Plan: Chronic/unstable - Nicotine patch ordered - Discussed smoking cessation as essential to her improving (9) Pulmonary nodule, right: Plan: Chronicity/stability uncertain - She is considered high risk of lung ca given heavy smoking history - RLL 9mm pulmonary nodule noted on CTA, this will need to be closely followed, would consider PET CT and/or biopsy - Consider referral to pulmonology vs. pulm nodule clinic at d/c Plan Plan as outlined above. Monitor overnight and anticipate discharge home tomorrow. Plan to be d/w Dr. Vivas. Admission and Anticipated Discharge Date Admission Date: October 20, 2022 Supervising Physician Co-Signing Physician Notes The patient was not seen by me. The chart was reviewed. Case discussed with JASON Cason. Agree with assessment and plan Subjective Patient was seen on daily rounds this morning. She is resting comfortably in bed, reports that he breathing has improved but feels "jittery." She denies chest pain, wheezing, dyspnea. Cough has improved. She has not had PFTs in "several years." No documented h/o COPD but smokes 1.5 ppd x 20+ years. Physical Exam Physical Exam: GENERAL: 67 yo well-developed, well-nourished F. AAOx4. NAD. LUNGS: Fair air exchange. Nonlabored. Scattered end expiratory wheezes throughout. CARDIOVASCULAR: Regular rate and rhythm. No M/G/R. ABDOMEN: Soft, non-tender and non-distended. BS normoactive x 4 quad. EXTREMITIES: No edema. Non-tender. Peripheral pulses +2/4. Results & Data Results & Data Vital Signs (Past 12 Hours) Vital Signs Temp Pulse Resp BP Pulse Ox O2 Del Method 10/21/22 07:47 36.7 C 89 16 154/68 H 91 Room Air 10/21/22 07:05 82 20 92 Room Air Laboratory Results 10/21/22 08:32 10/21/22 08:32 PG Care Time/CCT Total # of Minutes Spent Total Time Spent with Patient: Total time spent is greater than 50% in coordination of care (as documented) at patient's floor/unit and/or counseling patient: Coding Level of Care Code 66787 SUB INP/OBS CARE 2/35MIN Diagnoses Reactive airway disease with wheezing J45.909 Hypoxia R09.02 Oral candidiasis B37.0 Vaginal candidiasis B37.31 Psoriasis L40.9 Sleep apnea G47.30 Benign essential hypertension I10 Tobacco use disorder F17.200 Pulmonary nodule, right R91.1
[2022-10-21] MEDS: guaiFENesin 600 MG TABCR PO SCH (20:28)
[2022-10-21] MEDS: MICONAZOLE NITRATE 2% VAG CR 45 GM TUBE PV SCH (20:30)
--- NOTE | 2022-10-21 20:57 | Electrocardiogram Report ---
Test Reason : Blood Pressure : / mmHG Vent. Rate : 088 BPM Atrial Rate : 088 BPM P-R Int : 130 ms QRS Dur : 082 ms QT Int : 332 ms P-R-T Axes : 057 038 052 degrees QTc Int : 401 ms Normal sinus rhythm Premature atrial complexes When compared with ECG of 20-DEC-2010 14:57, Premature atrial complexes are now Present Confirmed by Emanuel Ojeda ([id number]) on 10/21/2022 8:56:32 PM Referred By: Liudmila Josue Confirmed By:Emanuel Ojeda
[2022-10-22] MEDS: ALBUT/IPRATROP 3MG/0.5MG NEB 3 ML VIAL NEB SCH ×3 (00:33→07:14)
[2022-10-22] MEDS: HEPARIN SOD 5,000 UNIT/0.5 ML VIAL SQ SCH (06:24)
[2022-10-22] MEDS: CLOTRIMAZOLE 10 MG TROCHE BUCCAL SCH ×2 (07:55→11:05)
[2022-10-22] MEDS ORDERED: ALBUT/IPRATROP 3MG/0.5MG NEB 3 ML VIAL NEB PRN (08:31)
[2022-10-22] MEDS: LOSARTAN POTASSIUM 50 MG TAB PO SCH (08:33)
[2022-10-22] MEDS: ESCITALOPRAM OXALATE 20 MG TAB PO SCH (08:33)
[2022-10-22] MEDS: guaiFENesin 600 MG TABCR PO SCH (08:33)
[2022-10-22] MEDS: ASPIRIN 81 MG ECTAB PO SCH (08:33)
[2022-10-22] MEDS: amLODIPine BESYLATE 5 MG TAB PO SCH (08:33)
[2022-10-22] MEDS: SPIRONOLACTONE 25 MG TAB PO SCH (08:34)
[2022-10-22] MEDS: DOCUSATE SODIUM 100 MG CAP PO SCH (08:34)
[2022-10-22] MEDS: NICOTINE 21 MG/24 HR TDSY TD SCH (08:34)
[2022-10-22] MEDS: methylPREDNISolone 40 MG in SYRINGE 0 ML IV SCH (08:40)
--- NOTE | 2022-10-22 09:12 | Discharge Summary ---
Date of Service October 22, 2022 Admission HPI Per Admitting Provider Yu Daigle is a 67 year old female who presents to the ER shortness of breath ongoing for three weeks. No diagnosed COPD or asthma but reports getting "asthma" sometimes when she gets a bad cold. Initially she requested azithromycin on September 13 due to sinus and chest congestion. She reported no significant improvement with this. Subsequently she was placed on prednisone taper and doxycycline on September 29 after visit at her PCP office. CXR at that time did not show a pneumonia. Reportedly using her husbands Combivent inhaler without improvement as well. She was given nebulized duoneb and Solu-medrol IM injection in the office on October 13 and restarted on prednisone taper with Levaquin. She returns today as still wheezing and was advised to go to the ER as oxygen saturation also in the high 80s which is unusual for her. She reports mouth pain for the last week and felt this was due to her albuterol inhaler therefore stopped taking this. Despite her shortness of breath she continues to smoke 1-1.5 packs/day. Principal Diagnosis 1. Acute respiratory failure with hypoxia - resolved 2. Reactive airway disease - suspected underlying COPD (undiagnosed) 3. Rhinovirus 4. RLL Pulmonary nodule Discharge Exam GENERAL: 67 yo well-developed, well-nourished F. AAOx4. NAD. LUNGS: Fair air exchange. Nonlabored. Scattered end expiratory wheezes throughout. CARDIOVASCULAR: Regular rate and rhythm. No M/G/R. ABDOMEN: Soft, non-tender and non-distended. BS normoactive x 4 quad. EXTREMITIES: No edema. Non-tender. Peripheral pulses +2/4. Discharge Data Allergies Allergy/AdvReac Type Severity Reaction Status Date / Time morphine Allergy Intermediate itching Verified 10/20/22 15:27 oxycodone AdvReac Intermediate Nausea/Vomi Verified 10/20/22 15:27 ting Consultations 10/20/22 16:26 ED Decision to Admit Stat Ordered Studies Chest CTA 10/20/22 12:53 CT ANGIOGRAM OF THE CHEST CLINICAL HISTORY: Dyspnea COMPARISON STUDY: Chest x-ray dated 10/13/2022. TECHNIQUE: Following the IV administration of 77 cc of Optiray 320, CT angiogram of the chest was performed from the upper abdomen to the thoracic inlet utilizing the pulmonary embolus protocol. Images are reviewed in the axial, sagittal, and coronal planes. 3-D MIPS images are created and assessed. IV contrast was administered without complication. A dose lowering technique was utilized adhering to the principles of ALARA. CT DOSE: 874.55 mGy.cm FINDINGS: Thyroid: Imaged portions of the thyroid gland are normal in size and attenuation. Thoracic aorta: There is advanced atherosclerotic calcification of the thoracic aorta, which is normal in caliber and demonstrates bovine variant arch anatomy. No dissection is seen. Pulmonary vasculature: The pulmonary trunk is normal in caliber. There are no filling defects identified in main, lobar, or segmental pulmonary branches to suggest pulmonary embolus. Heart: The heart is mildly enlarged and without pericardial effusion. The coronary arteries are densely calcified. Lungs and pleural spaces: Evaluation of the lung parenchyma is compromised by motion artifact. Emphysematous changes observed. The trachea and central airways are clear. There is no airspace consolidation typical for pneumonia or pleural effusion. Scarring/atelectasis is noted at the lung bases. There is a 9 mm ovoid nodule in the right lower lobe seen on image #129. A branching nodular opacity in the right middle lobe on image #1 measuring 10 likely represents an impacted bronchus. Mediastinum: There is no mediastinal lymphadenopathy. Kaitlin: Clear. Axillae: There is no axillary lymphadenopathy. Upper abdomen: There is a small hiatal hernia. There is mild nodular thickening of the adrenal glands. Partially visualized upper abdominal viscera is otherwise grossly unremarkable. Skeletal structures: The skeletal structures are osteopenic. Degenerative change and mild hyperkyphosis is seen in the thoracic spine. No lytic or blastic bony lesions are seen. IMPRESSION: 1. There is no evidence of pulmonary embolus in the main, lobar, or segmental pulmonary arteries. 2. Emphysema. 3. Cardiomegaly with advanced coronary artery atherosclerosis. 4. There is no airspace consolidation or pleural effusion. 5. There is a 9 mm ovoid right lower lobe pulmonary nodule. This is pathologically indeterminate, and follow-up is recommended as per the Fleischner criteria. See below. Please refer to below summary of Fleischner criteria recommendations for follow- up of incidental CT nodules (Jen Owen, Guidelines for management of small pulmonary nodules detected on CT scans: A statement from the Fleischner Society, Radiology 237: [phone].) SOLID NODULES Solitary nodule size: <6 mm * low risk patients: no follow-up needed * high risk patients: optional CT at 12 months Solitary nodule size: 6-8 mm * low risk patients: follow-up at 6-12 months, then consider further follow-up at 18-24 months * high risk patients: initial follow-up CT at 6-12 months and then at 18-24 months if no change Solitary nodule size: >8 mm * either low or high risk patients - consider follow-up CT at 3 months, and/or CT-PET, and/or biopsy Multiple nodules size: <6 mm * low risk patients: no routine follow-up * high risk patients: optional CT at 12 months Multiple nodules size: 6-8 mm * low risk patients: follow-up at 3-6 months, then consider further follow-up at 18-24 months * high risk patients: follow-up at 3-6 months, then at 18-24 months if no change Multiple nodules size: >8 mm * low risk patients: follow-up at 3-6 months, then consider further follow-up at 18-24 months * high risk patients: follow-up at 3-6 months, then at 18-24 months if no change Note: newly detected indeterminate nodule in persons 35 years of age or older. * low risk patients: minimal or absent history of smoking and/or other known risk factors * high risk patients: history of smoking or of other known risk factors (e.g. first degree relative with lung cancer, or exposure to asbestos, radon, uranium) * if a nodule up to 8 mm is partly solid or is ground glass further follow-up is required after 24 months to exclude possible slow growing adenocarcinoma (YANIRA) SUBSOLID NODULES Solitary pure ground-glass nodule * nodule size <6 mm - no CT follow-up required * nodule size >=6 mm - follow-up CT at 6-12 months, then every 2 years until 5 years Solitary part-solid nodule * nodule size <6 mm - no CT follow-up required * nodule size >=6 mm - follow-up CT at 3-6 months. If unchanged, and solid component remains <6 mm, then annual follow-up for 5 years Multiple subsolid nodules * nodule size <6 mm - follow-up CT at 3-6 months, consider further follow-up at 2 and 4 years if stable * nodule size >=6 mm - follow-up CT at 3-6 months, subsequent management based on the most suspicious nodule(s) ACT 112: Negative or not required by law. Electronically signed by: Patrick Kathleen M.D. 10/20/2022 3:24 PM Hospital Course (1) Reactive airway disease with wheezing: - Placed in observation to med/surg - RAD secondary to positive entero/rhinovirus - Suspect underlying COPD - would benefit from outpatient pulmonary function testing following acute exacerbation in ~6 weeks - Suspect failed outpatient treatment due to continued smoking, outside air quality and non-compliance with albuterol inhaler - Solu-Medrol 125mg IV given in ER, continue 40mg IV BID - will transition to Prednisone 40mg daily x 5 days - Duonebs QID - likely contributing to her jitteriness - transitioned to PRN - Would consider adding ICS/LABA combo inhaler following d/c - will defer to PCP - Can continue mucolytics as outpatient - Noted leukocytosis on admit is likely demargination from steroids course as outpatient - CBC reviewed 10/21, wbc decreased to 14 from 23, no further trending indicated. She remains afebrile. (2) Hypoxia: Acute respiratory failure with hypoxia - Currently w/o respiratory distress - Suspect due to reactive airway disease as above - Aim O2 sats > 88%, currently not requiring O2, pulse ox 92% - Performed ambulatory pulse ox prior to dc and did not desaturate <88% (3) Oral candidiasis: - Treated with Clotrimazole x5/day - Due to multiple recent courses of abx - No further abx indicated (4) Vaginal candidiasis: - Fluconazole 150mg PO x1 + Monistat (5) Psoriasis: - Untreated, although recently improved (suspect due to summer weather and recent systemic steroids) - Start topical steroids for this as needed (6) Sleep apnea: - Intolerant to CPAP at home, does not use one usually. - Would discuss this with pcp and/or sleep medicine - may need settings adjustment (7) Benign essential hypertension: - Continue amlodipine, spironolactone, and losartan - Would consider changing from spironolactone to HCTZ d/t risk of hyperkalemia with the spironolactone + losartan combo - defer to pcp (8) Tobacco use disorder: - Nicotine patch provided during her stay - Discussed smoking cessation as essential to her improving (9) Pulmonary nodule, right: - She is considered high risk of lung ca given heavy smoking history - RLL 9mm pulmonary nodule noted on CTA, this will need to be closely followed, would consider PET CT and/or biopsy - Referral to pulmonology vs. pulm nodule clinic at d/c - Did notify Sean Garcia PA-C on 10/21, he or the office staff will contact pt with date/time of appt Plan Patient is medically and hemodynamically stable for discharge home today. Recommend f/u with PCP in 1 week and pulmonology as outlined above. Complete steroid taper as directed. Above plan of care has been d/w Dr. Vivas who is in agreement with aforementioned. Total Time Total Time Spent Total Time Spent (In Minutes): 35 minutes Discharge Plan Discharge Items Patient Disposition: Home - Self-Care Reason For Visit: REACTIVE AIRWAY DISEASE, RHINOVIRUS Discharge Diagnosis: low oxygen common cold virus suspected copd Activity: Resume your previous activity Non-emergency contact: Primary Care Provider and Glass Calibrator Call non-emergency contact if: you have any medication questions Follow-up/Referrals: Liudmila Josue MD [Primary Care Provider] - 10/31/22 11:30 am Diet: Regular Addtl Attending Provider Instructions: You were hospitalized due to low oxygen levels which were felt to be due to a combination of viral infection with presumed underlying lung disease and recent poor air quality. You were treated with breathing treatments, oxygen and steroids and responded well. You were incidentally found to have areas in your lung that will need monitored to ensure they do not progress into cancer. This will be followed up by the pulmonology clinic. They will contact you at home with a date and time of your appointment. You will need to have pulmonary function tests performed in about 4-6 weeks to confirm the suspected diagnosis of lung disease to determine the best regimen to keep you from having recurrent flares. It is very strongly encouraged that you stop smoking. You can discuss options including medications if you are willing to try them with your family doctor at your next appointment. We recommend follow up with your family doctor within 1 week of discharge or sooner if needed. You are being discharged home on steroids, please take them as directed in the morning with food. You can start them on 10/23/22. Continue taking Mucinex 600mg one tablet twice a day which you can get over the counter for the next 5-7 days. Use your Albuterol inhaler as needed for shortness of breath or wheezing. Keep it with you at all times. If you have any questions or concerns after you leave the hospital, please call the nonemergency contact listed on your discharge instructions. In the event of a medical emergency, call 911. Pending Studies at Discharge: No Stand-Alone Forms: My [facility], Smoking Cessation Medications and DC Order Prescriptions: New prednisone 20 mg tablet 40 mg PO DAILY 5 Days Qty: 10 0RF Continued escitalopram oxalate 20 mg tablet 20 mg PO DAILY Qty: 90 3RF amlodipine 10 mg tablet 10 mg PO DAILY Qty: 90 3RF spironolactone 50 mg tablet 50 mg PO QAM Qty: 90 3RF losartan 100 mg tablet 100 mg PO DAILY Qty: 90 1RF cholecalciferol (vitamin D3) 2,000 unit capsule 2,000 units PO DAILY lorazepam [Ativan] 0.5 mg tablet 0.5 mg PO BID PRN (Reason: anxiety) Qty: 30 3RF aspirin 81 mg Tablet,Chewable 81 mg PO DAILY hydrocodone-acetaminophen 5-325 mg tablet 1 tab PO .Q4-6H PRN (Reason: pain) Rx Instructions: 1 tab PO every 4-6 hours PRN Discontinued levofloxacin 750 mg tablet 750 mg PO DAILY 7 Days Qty: 7 0RF Rx Instructions: STARTED 10/13/22, ENDED 10/20/22 prednisone 20 mg tablet See Rx Instructions PO .COMPLEX Qty: 30 0RF Rx Instructions: 3 tabs PO daily X 5 days, then 2 tabs PO daily X 5 days, then 1 tab PO daily X 5 days, then stop. Discharge Orders: Discharge Order (Routine); Ordered 10/22/22 Ordered By: Katlyn Dixon Admission Data Admit Date/Time: 10/20/22 16:51 Attending Provider: Dank Vivas Admit Provider: Baldemar Flores Primary Care Provider: Liudmila Josue Other Providers: Baldemar Flores Other Interventions: Discharge Summary Assessment (RN) Last Done: 10/22/22 12:04 Supervising Physician Co-Signing Physician Notes The patient was not seen by me. The chart was reviewed. Case discussed with JASON Kimball. Agree with assessment and plan Coding Level of Care Code 92720 INP/OBS DISCH >30 MIN Diagnoses Reactive airway disease with wheezing J45.909 Hypoxia R09.02 Oral candidiasis B37.0 Vaginal candidiasis B37.31 Psoriasis L40.9 Sleep apnea G47.30 Benign essential hypertension I10 Tobacco use disorder F17.200 Pulmonary nodule, right R91.1
== END 2022-10-22 13:29 | disposition home or self-care (01) | DRG 189 ==
LOC: ED 12:09 → SUATTDRO 16:51 → 3W 16:51

== ENCOUNTER 2023-08-04 16:43 | Observation (INO) ==
--- NOTE | 2023-08-04 17:22 | XRay Report ---
XR chest 1V not portable HISTORY: 68 years-old Female Chest pain, nonspecific acute chest pain COMPARISON: 01/23/2023 TECHNIQUE: PA view the chest FINDINGS: Cardiac silhouette is enlarged. Emphysema. Atherosclerosis of the aorta. No pneumothorax, pleural eff usion, airspace consolidation or pulmonary edema. Degenerative changes of the shoulders and spine. IMPRESSION: Cardiomegaly without acute process. ACT 112: Negative or not required by law. The above report was generated using voice recognition software. It may contain grammatical, syntax o r spelling errors. Electronically signed by: Kapil Angel M.D. 08/04/2023 5:21 PM
[2023-08-04 17:39] LABS: Basophils # (auto) 0.03 K/uL (0.00-0.20); Basophils % (auto) 0.2 %; Hematocrit (blood only) 45.1 % (37.0-47.0); Immature Granulocytes # (auto) 0.14 K/uL (0.01-0.20); Immature Granulocytes % (auto) 1.1 %; Lymphocytes # (auto) 1.19 K/uL (1.20-3.40); Mean Corpuscular Hemoglobin 28.9 pg (25.0-34.0); Mean Corpuscular Hgb Conc 33.3 g/dL (32.0-36.0); Mean Corpuscular Volume 86.9 fL (80.0-100.0); Mean Platelet Volume 10.8 fL (9.4-12.4); Monocytes # (auto) 0.28 K/uL (0.11-0.59); Monocytes % (auto) 2.1 %; Neutrophils # (auto) 11.61 K/uL (1.40-6.50); Neutrophils % (auto) 87.6 %; Platelet Count 332 K/uL (130-400); RDW Coefficient of Variation 13.6 % (11.5-14.5); RDW Standard Deviation 43.4 fL (36.4-46.3); Red Blood Count 5.19 M/uL (4.20-5.40); White Blood Count 13.25 K/ul (4.8-10.8)
--- NOTE | 2023-08-04 17:45 | Emergency Department Note ---
Impression & Plan Shortness of breath, Rhinovirus infection, Acute hypoxemic respiratory failure ED Provider Note HISTORY OF PRESENT ILLNESS: Patient is a 68-year-old female presenting with shortness of breath. Patient reports symptoms been ongoing for the last week. She "just thought it was a head cold" and was treating herself conservatively at home with her nebulizer treatments and with nasal flushes. She states that she is not getting any better and went to saw her primary care provider 48 hours ago and was started on a prednisone taper and a Z-Sterling. Patient states that "I am still not any better" and decided to come and be evaluated. She denies any measured fevers at home. Reports a nonproductive cough. Denies any chest pain with her shortness of breath. She denies any DVT or PE history. She is not on any anticoagulation. Denies any history of cardiac stents. Denies any abdominal pain, nausea or vomiting. Patient denies any supplemental oxygen use at baseline. ROS: as above PHYSICAL EXAM: Constitutional: Patient appears in no acute distress. HENT: Head: Normocephalic and atraumatic. Eyes: EOMI, PERRL Mouth/Throat: Mucous membranes moist. Neck: Trachea midline. Neck supple. Cardiovascular: RRR, No murmurs, rubs or gallops. Intact distal pulses. Pulmonary/Chest: No respiratory distress. Breath sounds clear and equal bilaterally. No wheezes or rales. Abdominal: Abdomen soft, no tenderness, rebound or guarding. Musculoskeletal: No edema, tenderness or deformity noted. Skin: Warm and dry. No rash, erythema, pallor or cyanosis Psychiatric: Appropriate mood and affect for situation. Neurological: Alert and keenly responsive. CN II-XII grossly intact, moving all extremities equally and fully. MDM: - Vitals signs stable. - History obtained via patient. History as above. - Chronic conditions affecting care: COPD; DM-2; HTN - Differential diagnoses include, but are not limited to: Congestive heart failure; acute coronary syndrome; COPD/asthma exacerbation; pulmonary edema; pulmonary embolism; pneumonia; pneumothorax; viral syndrome - Order placed for continuous cardiac monitoring. At this time, monitor showed rate of 70 bpm with normal sinus rhythm, per my interpretation. - External medical records reviewed. Primary care visit note dated 08/01/2023 was reviewed. Patient was seen in their clinic for sinusitis and shortness of breath. They started her on a Z-Sterling and prednisone taper due to patient's worsening condition and her history of COPD. - EKG interpreted by myself showed normal sinus rhythm. Rate 90 bpm. QT 356. No acute ischemic changes - Laboratory workup interpreted by myself showed leukocytosis (WBC 13.25) with left shift; normal PT/INR; hyperglycemia (glucose 293); normal troponin; normal BNP - CXR negative for pneumonia, per my interpretation - Viral respiratory panel positive for rhinovirus/enterovirus infection - Patient is requiring a new 2L NC to keep saturations around 93%. - Discussion was had with assistant case manager about patient's case and need for admission - Hospitalist consulted for admission - [facility] for further evaluation and management. ASSESSMENT AND PLAN: Diagnosis: shortness of breath; rhinovirus infection; acute hypoxic respiratory failure Plan: Admit Past Med/Surg History Medical History DM2 (diabetes mellitus, type 2) COPD (chronic obstructive pulmonary disease) Pulmonary nodule, right Tobacco use disorder Reactive airway disease with wheezing Sleep apnea Depression with anxiety Benign essential hypertension Surgical History History of hip replacement History of section Family History Other Breast cancer Myocardial infarction Denies family history of Ovarian cancer Prostate cancer Colorectal cancer Social History Smoking Status: Current every day smoker Tobacco Type: Cigarettes Age Started Using Tobacco: 18; packs per day: 1.5; Second Hand Exposure: Yes; Do You Dip or Chew Tobacco: No; Hx Alcohol Use: Yes (Only once or twice a year) Alcohol Intake Frequency: Monthly or Less Hx Substance Use: Yes Prescribed Medications: Marijuana Preferred Language: [place]er Communication Ability: Effective Visual Impairment: No Limitations Hearing Ability: Normal Behavioral Health Clinician Required: No Beliefs That Will Affect Care: None marital status: Current Living Situation: Spouse current occupational status: retired current occupation: Homemaker How many Children do You have: 4 Feels Safe at Home: Yes Childhood Exposure to Second-Hand Smoke: No Diet: regular caffeine: Yes (Tea ) during the past year weight has: remained stable Dental Care, Regularly: No Physical Activity Frequency: 1-2 Times per Week Seatbelt Use: always Sunscreen Use: Yes Do you think of yourself as: straight/heterosexual Gender Identity: Female Assistive Devices: Denture - Upper and Denture - Lower Allergies Allergies Allergy/AdvReac Type Severity Reaction Status Date / Time morphine Allergy Intermediate itching Verified 08/01/23 13:05 oxycodone AdvReac Intermediate Nausea/Vomi Verified 08/01/23 13:05 ting Home Meds Home Medications Medication Instructions Recorded Confirmed cholecalciferol (vitamin D3) 50 2,000 units PO DAILY 02/19/19 08/04/23 mcg (2,000 unit) capsule aspirin 81 mg chewable tablet 81 mg PO DAILY 10/20/22 08/04/23 Previous Rx's Medication Instructions Recorded albuterol sulfate 2.5 mg/3 mL 2.5 mg (3 mL) inhalation Q4H PRN 01/26/23 (0.083 %) solution for nebulization shortness of breath or wheezing #75 mL nebulizer accessories #1 ea 01/26/23 nebulizers #1 ea 01/26/23 amlodipine 10 mg tablet 10 mg PO DAILY #90 tabs 03/19/23 escitalopram oxalate 20 mg tablet 20 mg PO DAILY #90 tabs 03/19/23 losartan 100 mg tablet 100 mg PO DAILY #90 tabs 03/19/23 spironolactone 50 mg tablet 50 mg PO QAM #90 tabs 03/19/23 metformin 500 mg tablet 500 mg PO DAILY #30 tabs 05/23/23 lorazepam 0.5 mg tablet (Ativan) 0.5 mg PO DAILY PRN anxiety #20 07/04/23 tabs azithromycin 250 mg tablet See Rx Instructions PO .COMPLEX #6 08/01/23 tabs hydrocodone 5 mg-acetaminophen 325 1 tab PO TID PRN pain #30 tabs 08/01/23 mg tablet prednisone 20 mg tablet 20 mg PO .COMPLEX #30 tabs 08/01/23 umeclidinium 62.5 mcg-vilanterol 1 inh inhalation DAILY #60 ea 08/03/23 25 mcg/actuation powdr for inhalation (Anoro Ellipta) Results & Data (ED) Vital Signs Vital Signs - 24 hr 08/04/23 16:43 08/04/23 16:47 08/04/23 16:50 Temperature 37 C Temperature Source Temporal Artery Scan Pulse Rate 107 H Pulse Rate from SpO2 Sensor Pulse Rhythm Regular Pulse Strength Normal Respiratory Rate 20 Respiratory Effort / Characteristics Non-Labored Spontaneous Respiratory Depth Normal Blood Pressure Blood Pressure Mean Pulse Oximetry 87 L 91 87 L Oxygen Delivery Method Nasal Cannula Room Air Nasal Cannula Oxygen Flow Rate 2 2 Sepsis New/Unexplained Change in Mental Status No Sepsis Action Taken by Nursing No Action Required Pulse Oximetry Post Tiitration 94 94 08/04/23 16:50 08/04/23 17:36 08/04/23 17:37 Temperature Temperature Source Pulse Rate 84 89 89 Pulse Rate from SpO2 Sensor 89 Pulse Rhythm Regular Pulse Strength Respiratory Rate 22 19 Respiratory Effort / Characteristics Respiratory Depth Blood Pressure Blood Pressure Mean Pulse Oximetry 94 95 Oxygen Delivery Method Nasal Cannula Oxygen Flow Rate Sepsis New/Unexplained Change in Mental Status Sepsis Action Taken by Nursing Pulse Oximetry Post Tiitration 08/04/23 17:40 08/04/23 17:50 08/04/23 18:00 Temperature Temperature Source Pulse Rate 86 84 Pulse Rate from SpO2 Sensor 86 85 Pulse Rhythm Pulse Strength Respiratory Rate 18 23 Respiratory Effort / Characteristics Respiratory Depth Blood Pressure 141/66 H Blood Pressure Mean 100 Pulse Oximetry 95 96 Oxygen Delivery Method Oxygen Flow Rate Sepsis New/Unexplained Change in Mental Status Sepsis Action Taken by Nursing Pulse Oximetry Post Tiitration 08/04/23 18:00 08/04/23 18:10 08/04/23 18:20 Temperature Temperature Source Pulse Rate 80 80 80 Pulse Rate from SpO2 Sensor 81 79 80 Pulse Rhythm Pulse Strength Respiratory Rate 19 17 17 Respiratory Effort / Characteristics Respiratory Depth Blood Pressure Blood Pressure Mean Pulse Oximetry 95 95 94 Oxygen Delivery Method Oxygen Flow Rate Sepsis New/Unexplained Change in Mental Status Sepsis Action Taken by Nursing Pulse Oximetry Post Tiitration 08/04/23 18:30 08/04/23 18:31 08/04/23 18:36 Temperature Temperature Source Pulse Rate 80 83 Pulse Rate from SpO2 Sensor 78 83 Pulse Rhythm Pulse Strength Respiratory Rate 20 22 Respiratory Effort / Characteristics Respiratory Depth Blood Pressure 129/68 Blood Pressure Mean 87 Pulse Oximetry 95 94 Oxygen Delivery Method Oxygen Flow Rate Sepsis New/Unexplained Change in Mental Status Sepsis Action Taken by Nursing Pulse Oximetry Post Tiitration 08/04/23 18:40 08/04/23 18:50 08/04/23 19:00 Temperature Temperature Source Pulse Rate 85 85 75 Pulse Rate from SpO2 Sensor 85 84 76 Pulse Rhythm Pulse Strength Respiratory Rate 21 25 H 17 Respiratory Effort / Characteristics Respiratory Depth Blood Pressure 148/74 H Blood Pressure Mean 98 Pulse Oximetry 96 96 96 Oxygen Delivery Method Oxygen Flow Rate Sepsis New/Unexplained Change in Mental Status Sepsis Action Taken by Nursing Pulse Oximetry Post Tiitration 08/04/23 19:10 08/04/23 19:20 08/04/23 19:30 Temperature Temperature Source Pulse Rate 75 74 Pulse Rate from SpO2 Sensor 74 74 Pulse Rhythm Pulse Strength Respiratory Rate 19 18 Respiratory Effort / Characteristics Respiratory Depth Blood Pressure 146/78 H Blood Pressure Mean 112 Pulse Oximetry 96 96 Oxygen Delivery Method Oxygen Flow Rate Sepsis New/Unexplained Change in Mental Status Sepsis Action Taken by Nursing Pulse Oximetry Post Tiitration 08/04/23 19:30 08/04/23 19:40 08/04/23 19:50 Temperature Temperature Source Pulse Rate 78 74 74 Pulse Rate from SpO2 Sensor 77 74 73 Pulse Rhythm Pulse Strength Respiratory Rate 19 16 20 Respiratory Effort / Characteristics Respiratory Depth Blood Pressure Blood Pressure Mean Pulse Oximetry 95 95 96 Oxygen Delivery Method Oxygen Flow Rate Sepsis New/Unexplained Change in Mental Status Sepsis Action Taken by Nursing Pulse Oximetry Post Tiitration 08/04/23 20:00 08/04/23 20:00 08/04/23 20:10 Temperature Temperature Source Pulse Rate 72 70 Pulse Rate from SpO2 Sensor 73 69 Pulse Rhythm Pulse Strength Respiratory Rate 20 18 Respiratory Effort / Characteristics Respiratory Depth Blood Pressure 143/74 H Blood Pressure Mean 114 Pulse Oximetry 96 96 Oxygen Delivery Method Oxygen Flow Rate Sepsis New/Unexplained Change in Mental Status Sepsis Action Taken by Nursing Pulse Oximetry Post Tiitration Laboratory Data 08/04/23 Unknown 08/04/23 Unknown Lab Results 08/04/23 08/04/23 Range/Units 19:25 Unknown WBC 13.25 H (4.8-10.8) K/ul RBC 5.19 (4.20-5.40) M/uL Hgb 15.0 (12.0-16.0) g/dl Hct 45.1 (37.0-47.0) % MCV 86.9 (80.0-100.0) fL MCH 28.9 (25.0-34.0) pg MCHC 33.3 (32.0-36.0) g/dL RDW Std Deviation 43.4 (36.4-46.3) fL RDW Coeff of [place] 13.6 (11.5-14.5) % Plt Count 332 (130-400) K/uL MPV 10.8 (9.4-12.4) fL Immature Gran % (Auto) 1.1 % Neut % (Auto) 87.6 % Lymph % (Auto) 9.0 % Swain % (Auto) 2.1 % Eos % (Auto) 0.0 % Baso % (Auto) 0.2 % Neut # (Auto) 11.61 H (1.40-6.50) K/uL Lymph # (Auto) 1.19 L (1.20-3.40) K/uL Swain # (Auto) 0.28 (0.11-0.59) K/uL Eos # (Auto) 0.00 (0.00-0.50) K/uL Baso # (Auto) 0.03 (0.00-0.20) K/uL Immature Gran # (Auto) 0.14 (0.01-0.20) K/uL PT 10.2 (9.0-12.0) Seconds INR 0.9 (0.9-1.1) APTT 26 (21-31) Seconds PTT Ratio 0.9 Sodium 134 L (136-145) mmol/L Potassium 4.2 (3.5-5.1) mmol/L Chloride 100 (98-107) mmol/L Carbon Dioxide 25 (21-32) mmol/L Anion Gap 9 (3-11) BUN 23 (6-23) mg/dl Creatinine 0.98 (0.6-1.2) mg/dl Est Cr Clr Drug Dosing 52.6 ml/min Est GFR ( Amer) 69.7 ml/min Est GFR (Non-Af Amer) 60.1 ml/min BUN/Creatinine Ratio 23.5 H (10-20) Glucose 293 H (70-99(Fasting)) mg/dl Calcium 10.6 H (8.6-10.3) mg/dl Total Bilirubin 0.3 (0.2-1.0) mg/dl AST 15 (13-39) U/L ALT 24 (7-52) U/L Alkaline Phosphatase 96 (34-104) U/L Troponin I High Sens 4.7 (0-14) pg/ml B-Natriuretic Peptide 53 (0-100) pg/ml Total Protein 7.3 (6.0-8.3) gm/dl Albumin 4.5 (3.4-5.0) gm/dl Globulin 2.8 (2.5-4.0) gm/dl Albumin/Globulin Ratio 1.6 (0.9-2) Adenovirus (PCR) Not Detected (NotDetected) B. pertussis DNA (PCR) Not Detected (NotDetected) B.parapertussis DNA PCR Not Detected (NotDetected) C. pneumoniae DNA (PCR) Not Detected (NotDetected) Coronavirus OC43 (PCR) Not Detected (NotDetected) Coronavirus HKU1 (PCR) Not Detected (NotDetected) Coronavirus 229E (PCR) Not Detected (NotDetected) SARS-CoV-2 (PCR) Not Detected (NotDetected) Coronavirus NL63 (PCR) Not Detected (NotDetected) Human Metapneumovir PCR Not Detected (NotDetected) Influenza Type A (PCR) Not Detected (NotDetected) Influenza Type B (PCR) Not Detected (NotDetected) M. pneumoniae (PCR) Not Detected (NotDetected) Parainfluenza 1 (PCR) Not Detected (NotDetected) Parainfluenza 2 (PCR) Not Detected (NotDetected) Parainfluenza 3 (PCR) Not Detected (NotDetected) Parainfluenza 4 (PCR) Not Detected (NotDetected) RSV (PCR) Not Detected (NotDetected) Entero/Rhino (PCR) DETECTED A (NotDetected) Imaging Data Radiologist's Impression: Chest X-Ray 08/04/23 16:50 XR chest 1V not portable HISTORY: 68 years-old Female Chest pain, nonspecific acute chest pain COMPARISON: 01/23/2023 TECHNIQUE: PA view the chest FINDINGS: Cardiac silhouette is enlarged. Emphysema. Atherosclerosis of the aorta. No pneumothorax, pleural effusion, airspace consolidation or pulmonary edema. Degenerative changes of the shoulders and spine. IMPRESSION: Cardiomegaly without acute process. ACT 112: Negative or not required by law. The above report was generated using voice recognition software. It may contain grammatical, syntax or spelling errors. Electronically signed by: Kapil Angel M.D. 08/04/2023 5:21 PM Discharge Plan Visit Data Chief Complaint: Shortness of Breath/Dyspnea Stated Complaint: TROUBLE BREATHING, WEAKNESS ED Provider: Maria R [facility] Discharge Problem: Shortness of breath, Rhinovirus infection, Acute hypoxemic respiratory failure Forms Stand Alone Forms: My [facility] Prescriptions Prescriptions: No Action amlodipine 10 mg tablet 10 mg PO DAILY Qty: 90 3RF escitalopram oxalate 20 mg tablet 20 mg PO DAILY Qty: 90 3RF losartan 100 mg tablet 100 mg PO DAILY Qty: 90 1RF spironolactone 50 mg tablet 50 mg PO QAM Qty: 90 3RF metformin 500 mg tablet 500 mg PO DAILY Qty: 30 5RF lorazepam [Ativan] 0.5 mg tablet 0.5 mg PO DAILY PRN (Reason: anxiety) Qty: 20 0RF Anoro Ellipta 62.5-25 mcg/actuation blister with device 1 inh inhalation DAILY Qty: 60 3RF cholecalciferol (vitamin D3) 2,000 unit capsule 2,000 units PO DAILY albuterol sulfate 2.5 mg /3 mL (0.083 %) solution for nebulization 2.5 mg inhalation Q4H PRN (Reason: shortness of breath or wheezing) Qty: 75 4RF (DME) nebulizer accessories Kit See Rx Instructions .Route Qty: 1 0RF Rx Instructions: J44.9, J45.909 (DME) nebulizers [facility] See Rx Instructions .Route Qty: 1 0RF Rx Instructions: J44.9, J45.909 hydrocodone-acetaminophen 5-325 mg tablet 1 tab PO TID PRN (Reason: pain) Qty: 30 0RF azithromycin 250 mg tablet See Rx Instructions PO .COMPLEX Qty: 6 0RF Rx Instructions: For 250 mg dose pack: take 500 mg today (day 1), then 250 mg for 4 days (days 2-5) PO prednisone 20 mg tablet 20 mg PO .COMPLEX Qty: 30 0RF Rx Instructions: 3 tabs PO daily x 5 days, then 2 tabs PO daily x 5 days, then 1 tab PO daily x 5d, then STOP; aspirin 81 mg Tablet,Chewable 81 mg PO DAILY Referrals Referrals: Liudmila Josue MD [Primary Care Provider] -
[2023-08-04 18:00] LABS: Albumin Globulin Ratio 1.6 (0.9-2); Albumin Level 4.5 gm/dl (3.4-5.0); BUN Creatinine Ratio 23.5 (10-20); Bilirubin,Total 0.3 mg/dl (0.2-1.0); Calcium 10.6 mg/dl (8.6-10.3); Creatinine Clr Calc Pharmacy 52.6 ml/min; Est GFR (African American) 69.7 ml/min; Est GFR (Non-African American) 60.1 ml/min; Globulin 2.8 gm/dl (2.5-4.0); Potassium 4.2 mmol/L (3.5-5.1); Total Protein 7.3 gm/dl (6.0-8.3)
[2023-08-04 18:07] LABS: Troponin I High Sensitivity 4.7 pg/ml (0-14)
[2023-08-04 18:11] LABS: INR 0.9 (0.9-1.1); Partial Thromboplastin Ratio 0.9; Partial Thromboplastin Time 26 Seconds (21-31); Prothrombin Time 10.2 Seconds (9.0-12.0)
[2023-08-04 19:40] LABS: Adenovirus PCR Not Detected (NotDetected); Bordetella parapertussis PCR Not Detected (NotDetected); Bordetella pertussis PCR Not Detected (NotDetected); Chlamydia pneumoniae PCR Not Detected (NotDetected); Coronavirus 229E PCR Not Detected (NotDetected); Coronavirus CoV-2 (COVID19)PCR Not Detected (NotDetected); Coronavirus HKU1 PCR Not Detected (NotDetected); Coronavirus NL63 PCR Not Detected (NotDetected); Coronavirus OC43PCR Not Detected (NotDetected); Human Metapneumovirus PCR Not Detected (NotDetected); Influenza A PCR Not Detected (NotDetected); Influenza B PCR Not Detected (NotDetected); Mycoplasma pneumoniae PCR Not Detected (NotDetected); Parainfluenza Virus 1 PCR Not Detected (NotDetected); Parainfluenza Virus 2 PCR Not Detected (NotDetected); Parainfluenza Virus 3 PCR Not Detected (NotDetected); Parainfluenza Virus 4 PCR Not Detected (NotDetected); Respiratory Syncytial VirusPCR Not Detected (NotDetected); Rhinovirus/Enterovirus PCR DETECTED (NotDetected)
--- NOTE | 2023-08-04 21:42 | History & Physical Report ---
Date of Service August 04, 2023 Assessment & Plan (1) Acute hypoxemic respiratory failure: Plan: Patient with acute hypoxemic respiratory failure, saturation of 87% on room air requiring supplemental O2. Likely secondary to underlying COPD + enterovirus infection. Seasonal allergies possibly playing a role as well. Patient overall feels well, improved. -Observation to medical -Continue supplemental O2 as needed -DuoNeb q 4 hours -Albuterol q2 hours PRN -Prednisone 40mg po daily -Smoking cessation counseling -Guaifenesin 1200mg po BID Fllutter valve -Patient reports that she was on Anoro in the past, however, this is cost prohibitive. As a result, she is taking only Albuterol PRN. Case management consultation to assist with home medications (2) Rhinovirus infection: Plan: Supportive care (3) COPD (chronic obstructive pulmonary disease): Plan: Patient with likely COPD. Has seen Pulmonary in the past. Was recommended Anoro and was using samples, but, unfortunately has been unable to afford this medication COPD + Rhinovirus likely playing role in patient's current hypoxia. Minimal wheezing appreciated -DuoNebs, Albuterol and Prednisone as above -Patient could consider nasal saline washes, Flonase to assist with allergy symptoms (4) DM2 (diabetes mellitus, type 2): Plan: Chronic. Patient on Metformin -Hold Metformin -Lantus 5u BID -ISS (5) HTN (hypertension), benign: Plan: Chronic. Blood pressure mildly elevated 165/74 -Continue Amlodipine 10mg po daily (6) Depression: Plan: Chronic. Stable -Continue Escitalopram 20mg po daily History of Present Illness Chief Complaint: shortness of breath Primary Care Provider: Liudmila Josue MD Yu Daigle is a 68yo female with history of COPD (?dx based on spirometry testing FVC=60% and FEV1 53% of predicted), AKIRA, HTN and DM presenting with 2 weeks of progressive shortness of breath. Patient has had URI symptoms of cough, congestion and sneezing for approximately one week. She has also had progressive dyspnea on exertion. She reports some difficulty climbing stairs today. She has been using her Albuterol nebulizer machine 3x daily with some improvement. She was seen by her PCP on 08/01/23 and given a prescription for Azithromycin and Prednisone which she has been taking without improvement in symptoms. She denies chest pain, palpitations, edema or orthopnea. No fever, chills or sweats. No nausea, vomiting, diarrhea or constipation. No home O2 use. Patient does not use CPAP for AKIRA. Patient reports a similar episode last year at this time which took 3 course of antibiotics and steroids to clear. In the ER she is afebrile, HD stable, hypoxic at 87% on room air which has improved with 2L NC. Patient is visiting her sister in [place] for three weeks and is planning on leaving next Sunday (08/13/23) Allergies Allergy/AdvReac Type Severity Reaction Status Date / Time morphine Allergy Intermediate itching Verified 08/01/23 13:05 oxycodone AdvReac Intermediate Nausea/Vomi Verified 08/01/23 13:05 ting Home Medications Medication Instructions Recorded Confirmed Type cholecalciferol (vitamin D3) 50 2,000 units PO DAILY 02/19/19 08/04/23 History mcg (2,000 unit) capsule aspirin 81 mg chewable tablet 81 mg PO DAILY 10/20/22 08/04/23 History albuterol sulfate 2.5 mg/3 mL 2.5 mg (3 mL) inhalation Q4H PRN 01/26/23 08/04/23 Rx (0.083 %) solution for nebulization shortness of breath or wheezing #75 mL nebulizer accessories #1 ea 01/26/23 08/01/23 Rx nebulizers #1 ea 01/26/23 08/01/23 Rx amlodipine 10 mg tablet 10 mg PO DAILY #90 tabs 03/19/23 08/04/23 Rx escitalopram oxalate 20 mg tablet 20 mg PO DAILY #90 tabs 03/19/23 08/04/23 Rx losartan 100 mg tablet 100 mg PO DAILY #90 tabs 03/19/23 08/04/23 Rx spironolactone 50 mg tablet 50 mg PO QAM #90 tabs 03/19/23 08/04/23 Rx metformin 500 mg tablet 500 mg PO DAILY #30 tabs 05/23/23 08/04/23 Rx lorazepam 0.5 mg tablet (Ativan) 0.5 mg PO DAILY PRN anxiety #20 07/04/23 08/04/23 Rx tabs azithromycin 250 mg tablet See Rx Instructions PO .COMPLEX #6 08/01/23 08/04/23 Rx tabs hydrocodone 5 mg-acetaminophen 325 1 tab PO TID PRN pain #30 tabs 08/01/23 08/04/23 Rx mg tablet prednisone 20 mg tablet 20 mg PO .COMPLEX #30 tabs 08/01/23 08/04/23 Rx umeclidinium 62.5 mcg-vilanterol 1 inh inhalation DAILY #60 ea 08/03/23 08/04/23 Rx 25 mcg/actuation powdr for inhalation (Anoro Ellipta) Past Med/Surg History Medical History DM2 (diabetes mellitus, type 2) dx 05/2022 A1C 6.5 COPD (chronic obstructive pulmonary disease) Sprirometery 10/2022 FVC 60%, FEV1 53%, FVC/FEV1 88% Pulmonary nodule, right 9mm ovoid pulmonary nodule RLL - incidental finding Tobacco use disorder 10/2022 Current 1ppd smoker 30 pack year hx Reactive airway disease with wheezing Sprirometery 10/2022 FVC 60%, FEV1 53%, FVC/FEV1 88% FeNO 8 Sleep apnea Sleep study 2020. Used mask x 1 month. Kept taking mask off during the night Depression with anxiety Benign essential hypertension Surgical History History of hip replacement Bilateral History of section Family History Other Breast cancer Myocardial infarction Denies family history of Ovarian cancer Prostate cancer Colorectal cancer Social History Smoking Status: Current every day smoker Tobacco Type: Cigarettes Age Started Using Tobacco: 18; packs per day: 1.5; Cigarettes Per Day: 1 pack; Second Hand Exposure: Yes; Do You Dip or Chew Tobacco: No; Tobacco Cessation Education Requested by Patient: No Hx Alcohol Use: Yes Alcohol Intake Frequency: Monthly or Less Hx Substance Use: Yes Prescribed Medications: Marijuana Last Used Substance Ot her:: every day Preferred Language: Macedonian Communication Ability: Effective Visual Impairment: No Limitations Hearing Ability: Normal Home Builder Required: No Beliefs That Will Affect Care: None marital status: Current Living Situation: Spouse current occupational status: retired current occupation: Homemaker How many Children do You have: 4 Other Information That Helps Us Care for You: No Feels Safe at Home: Yes Safety Concerns: Feels Safe At This Time Childhood Exposure to Second-Hand Smoke: No Diet: regular caffeine: Yes (Tea ) during the past year weight has: remained stable Dental Care, Regularly: No Physical Activity Frequency: 1-2 Times per Week Seatbelt Use: always Sunscreen Use: Yes Do you think of yourself as: straight/heterosexual Gender Identity: Female Assistive Devices: None Review of Systems Review of Systems: All systems reviewed & are unremarkable except as noted in HPI & below Physical Exam Physical Exam: General: patient resting comfortably, NAD, non-toxic in appearance, AA&O x 4 Skin: warm, dry, intact, psoriasis patches on extensor surfaces of arms bilaterally HEENT: NC/AT, PERRL, EOMI, anicteric sclera, conjunctiva without injection, external ear normal to inspection and nontender, nares patent, moist mucus membranes, dentition intact, no oropharyngeal lesions, neck supple, trachea midline, no LAD, no thyromegaly, no JVD Heart: +S1/S2, regular, no m/r/g Lungs: equal air entry bilaterally, no rales/rhonchi, faint end-expiratory wheezing bilaterally, no respiratory distress Abd: +BS, soft, NT/ND, no masses/organomegaly/ascites Ext: warm, 2+ pulses in UE/LE bilaterally, no clubbing/cyanosis or edema Neuro: nonfocal, patient AA&O x 4, speech intact, no facial droop, moving all extremities on command with equal strength 5/5 Results & Data Results & Data Vital Signs (Past 12 Hours) Vital Signs Temp Pulse Resp BP Pulse Ox O2 Del Method O2 Flow Rate 08/04/23 20:10 70 18 96 08/04/23 20:00 72 20 96 08/04/23 20:00 143/74 H 08/04/23 19:50 74 20 96 08/04/23 19:40 74 16 95 08/04/23 19:30 78 19 95 08/04/23 19:30 146/78 H 08/04/23 19:20 74 18 96 08/04/23 19:10 75 19 96 08/04/23 19:00 75 17 96 08/04/23 18:50 85 25 H 148/74 H 96 08/04/23 18:40 85 21 96 08/04/23 18:36 83 22 94 08/04/23 18:31 129/68 08/04/23 18:30 80 20 95 08/04/23 18:20 80 17 94 08/04/23 18:10 80 17 95 08/04/23 18:00 80 19 95 08/04/23 18:00 141/66 H 08/04/23 17:50 84 23 96 08/04/23 17:40 86 18 95 08/04/23 17:37 89 08/04/23 17:36 89 19 95 08/04/23 16:50 84 22 94 Nasal Cannula 08/04/23 16:50 87 L Nasal Cannula 2 08/04/23 16:47 37 C 107 H 20 91 Room Air 08/04/23 16:43 87 L Nasal Cannula 2 Laboratory Results Laboratory Results WBC 13.25 K/ul (4.8-10.8) H 08/04/23 Unknown RBC 5.19 M/uL (4.20-5.40) 08/04/23 Unknown Hgb 15.0 g/dl (12.0-16.0) 08/04/23 Unknown Hct 45.1 % (37.0-47.0) 08/04/23 Unknown MCV 86.9 fL (80.0-100.0) 08/04/23 Unknown MCH 28.9 pg (25.0-34.0) 08/04/23 Unknown MCHC 33.3 g/dL (32.0-36.0) 08/04/23 Unknown RDW Std Deviation 43.4 fL (36.4-46.3) 08/04/23 Unknown RDW Coeff of [place] 13.6 % (11.5-14.5) 08/04/23 Unknown Plt Count 332 K/uL (130-400) 08/04/23 Unknown MPV 10.8 fL (9.4-12.4) 08/04/23 Unknown Immature Gran % (Auto) 1.1 % 08/04/23 Unknown Neut % (Auto) 87.6 % 08/04/23 Unknown Lymph % (Auto) 9.0 % 08/04/23 Unknown [place] % (Auto) 2.1 % 08/04/23 Unknown Eos % (Auto) 0.0 % 08/04/23 Unknown Baso % (Auto) 0.2 % 08/04/23 Unknown Neut # (Auto) 11.61 K/uL (1.40-6.50) H 08/04/23 Unknown Lymph # (Auto) 1.19 K/uL (1.20-3.40) L 08/04/23 Unknown [place] # (Auto) 0.28 K/uL (0.11-0.59) 08/04/23 Unknown Eos # (Auto) 0.00 K/uL (0.00-0.50) 08/04/23 Unknown Baso # (Auto) 0.03 K/uL (0.00-0.20) 08/04/23 Unknown Immature Gran # (Auto) 0.14 K/uL (0.01-0.20) 08/04/23 Unknown PT 10.2 Seconds (9.0-12.0) 08/04/23 Unknown INR 0.9 (0.9-1.1) 08/04/23 Unknown APTT 26 Seconds (21-31) 08/04/23 Unknown PTT Ratio 0.9 08/04/23 Unknown Sodium 134 mmol/L (136-145) L 08/04/23 Unknown Potassium 4.2 mmol/L (3.5-5.1) 08/04/23 Unknown Chloride 100 mmol/L (98-107) 08/04/23 Unknown Carbon Dioxide 25 mmol/L (21-32) 08/04/23 Unknown Anion Gap 9 (3-11) 08/04/23 Unknown BUN 23 mg/dl (6-23) 08/04/23 Unknown Creatinine 0.98 mg/dl (0.6-1.2) 08/04/23 Unknown Est Cr Clr Drug Dosing 52.6 ml/min 08/04/23 Unknown Est GFR ( Amer) 69.7 ml/min 08/04/23 Unknown Est GFR (Non-Af Amer) 60.1 ml/min 08/04/23 Unknown BUN/Creatinine Ratio 23.5 (10-20) H 08/04/23 Unknown Glucose 293 mg/dl (70-99(Fasting)) H 08/04/23 Unknown POC Glucose 126 mg/dl (70-99) H 08/04/23 22:43 Calcium 10.6 mg/dl (8.6-10.3) H 08/04/23 Unknown Total Bilirubin 0.3 mg/dl (0.2-1.0) 08/04/23 Unknown AST 15 U/L (13-39) 08/04/23 Unknown ALT 24 U/L (7-52) 08/04/23 Unknown Alkaline Phosphatase 96 U/L (34-104) 08/04/23 Unknown Troponin I High Sens 4.7 pg/ml (0-14) 08/04/23 Unknown B-Natriuretic Peptide 53 pg/ml (0-100) 08/04/23 19:25 Total Protein 7.3 gm/dl (6.0-8.3) 08/04/23 Unknown Albumin 4.5 gm/dl (3.4-5.0) 08/04/23 Unknown Globulin 2.8 gm/dl (2.5-4.0) 08/04/23 Unknown Albumin/Globulin Ratio 1.6 (0.9-2) 08/04/23 Unknown Adenovirus (PCR) Not Detected (NotDetected) 08/04/23 Unknown B. pertussis DNA (PCR) Not Detected (NotDetected) 08/04/23 Unknown B.parapertussis DNA PCR Not Detected (NotDetected) 08/04/23 Unknown C. pneumoniae DNA (PCR) Not Detected (NotDetected) 08/04/23 Unknown Coronavirus OC43 (PCR) Not Detected (NotDetected) 08/04/23 Unknown Coronavirus HKU1 (PCR) Not Detected (NotDetected) 08/04/23 Unknown Coronavirus 229E (PCR) Not Detected (NotDetected) 08/04/23 Unknown SARS-CoV-2 (PCR) Not Detected (NotDetected) 08/04/23 Unknown Coronavirus NL63 (PCR) Not Detected (NotDetected) 08/04/23 Unknown Human Metapneumovir PCR Not Detected (NotDetected) 08/04/23 Unknown Influenza Type A (PCR) Not Detected (NotDetected) 08/04/23 Unknown Influenza Type B (PCR) Not Detected (NotDetected) 08/04/23 Unknown M. pneumoniae (PCR) Not Detected (NotDetected) 08/04/23 Unknown Parainfluenza 1 (PCR) Not Detected (NotDetected) 08/04/23 Unknown Parainfluenza 2 (PCR) Not Detected (NotDetected) 08/04/23 Unknown Parainfluenza 3 (PCR) Not Detected (NotDetected) 08/04/23 Unknown Parainfluenza 4 (PCR) Not Detected (NotDetected) 08/04/23 Unknown RSV (PCR) Not Detected (NotDetected) 08/04/23 Unknown Entero/Rhino (PCR) DETECTED (NotDetected) A 08/04/23 Unknown Impressions Chest X-Ray 08/04/23 16:50 XR chest 1V not portable HISTORY: 68 years-old Female Chest pain, nonspecific acute chest pain COMPARISON: 01/23/2023 TECHNIQUE: PA view the chest FINDINGS: Cardiac silhouette is enlarged. Emphysema. Atherosclerosis of the aorta. No pneumothorax, pleural effusion, airspace consolidation or pulmonary edema. Degenerative changes of the shoulders and spine. IMPRESSION: Cardiomegaly without acute process. ACT 112: Negative or not required by law. The above report was generated using voice recognition software. It may contain grammatical, syntax or spelling errors. Electronically signed by: Kapil Angel M.D. 08/04/2023 5:21 PM ECG Additional Comments: EKG with NSR at 90bpm, normal axis, KJ=455, QRS=84, IHa=502, no acute ischemic changes PG Care Time/CCT Total # of Minutes Spent Total Time Spent with Patient: Total time spent is greater than 50% in coordination of care (as documented) at patient's floor/unit and/or counseling patient: Coding Level of Care Code 23193 INT INP/OBS CARE 3/75MIN Diagnoses Acute hypoxemic respiratory failure J96.01 Rhinovirus infection B34.8 Chronic obstructive pulmonary disease, unspecified COPD type J44.9 COPD type: unspecified COPD Type 2 diabetes mellitus without complication, without long-term current use of insulin E11.9 Diabetes mellitus snf insulin use: without intermediate card tender use Diabetes mellitus complication status: without complication HTN (hypertension), benign I10 Recurrent major depressive disorder, in partial remission F33.41 Depression Type: major depressive disorder Major depression recurrence: recurrent Active/Remission status: in partial remission (3) COPD (chronic obstructive pulmonary disease) COPD type: unspecified COPD Qualified Code(s): J44.9 - Chronic obstructive pulmonary disease, unspecified (4) DM2 (diabetes mellitus, type 2) Diabetes mellitus snf insulin use: without intermediate card tender use Diabetes mellitus complication status: without complication Qualified Code(s): E11.9 - Type 2 diabetes mellitus without complications (6) Depression Depression Type: major depressive disorder Major depression recurrence: recurrent Active/Remission status: in partial remission Qualified Code(s): F33.41 - Major depressive disorder, recurrent, in partial remission
[2023-08-04] MEDS: NICOTINE 21 MG/24 HR TDSY TD STA (21:52)
[2023-08-04] MEDS ORDERED: GLUCOSE 10 TAB/TUBE PO PRN (22:45)
[2023-08-04] MEDS ORDERED: DEXTROSE 50% 50 ML SYRINGE IV PRN (22:45)
[2023-08-04] MEDS ORDERED: ALBUTEROL 0.5% NEB SOLN 2.5 MG/0.5 ML VIAL NEB PRN (22:45)
[2023-08-04] MEDS ORDERED: ACETAMINOPHEN 325 MG TAB PO PRN (22:45)
[2023-08-04] MEDS ORDERED: HYDROCODONE/ACETAMOPHEN 5/325MG TAB PO PRN (22:45)
[2023-08-04] MEDS ORDERED: CARBOHYDRATES FOR HYPOGLYCEMIA PO PRN (22:45)
[2023-08-04] MEDS ORDERED: ONDANSETRON INJ 2 MG/ML 2 ML VIAL IV PRN (22:45)
[2023-08-04] MEDS ORDERED: GLUCOSE 40% GEL 15 GM TUBE PO PRN (22:45)
[2023-08-04] MEDS ORDERED: GLUCAGON FOR INJ 1 MG VIAL SQ PRN (22:45)
[2023-08-04] MEDS: INSULIN ASPART PER UNIT CHARGE SC SCH (23:32)
[2023-08-04] MEDS: ALBUT/IPRATROP 3MG/0.5MG NEB 3 ML VIAL NEB SCH (23:41)
[2023-08-05] MEDS: LANTUS PER UNIT CHARGE SQ SCH (00:04)
[2023-08-05] MEDS: LORazepam 0.5 MG TAB PO PRN (00:08)
--- NOTE | 2023-08-05 07:18 | Electrocardiogram Report ---
Test Reason : Blood Pressure : / mmHG Vent. Rate : 090 BPM Atrial Rate : 090 BPM P-R Int : 142 ms QRS Dur : 084 ms QT Int : 356 ms P-R-T Axes : 064 058 043 degrees QTc Int : 435 ms Normal sinus rhythm Normal ECG When compared with ECG of 20-OCT-2022 13:19, Premature atrial complexes are no longer Present Confirmed by Jose Esparza ([id number]) on 08/05/2023 7:18:17 AM Referred By: REFERRED SELF Confirmed By:Bernard Esparza
[2023-08-05] MEDS ORDERED: predniSONE 20 MG TAB PO SCH (09:00)
[2023-08-05] MEDS: UMECLIDINIUM/VILANTEROL 62.5/25MCG 7 PUFFS/INHALER INH SCH (09:04)
[2023-08-05] MEDS: amLODIPine BESYLATE 5 MG TAB PO SCH (09:05)
[2023-08-05] MEDS: predniSONE 20 MG TAB PO SCH (09:05)
[2023-08-05] MEDS: ASPIRIN 81 MG CHEW PO SCH (09:05)
[2023-08-05] MEDS: guaiFENesin 600 MG TABCR PO SCH (09:05)
[2023-08-05] MEDS: ESCITALOPRAM OXALATE 20 MG TAB PO SCH (09:05)
[2023-08-05] MEDS: LOSARTAN POTASSIUM 50 MG TAB PO SCH (09:05)
[2023-08-05] MEDS: SPIRONOLACTONE 25 MG TAB PO SCH (09:05)
[2023-08-05] MEDS: BENZONATATE 100 MG CAPSULE PO PRN (09:10)
[2023-08-05] MEDS ORDERED: methylPREDNISolone 1000 MG/16 ML IV ONE (12:30)
[2023-08-05] MEDS: methylPREDNISolone 125 MG in SYRINGE 0 ML IV ONE (12:34)
--- NOTE | 2023-08-05 12:39 | Discharge Summary ---
Discharge Summary Date of Service August 05, 2023 Notes For Next Care Provider Medication Changes From Visit Added albuterol HFA 2 puffs qid prn SOB/wheezing Added O2 2LNC with exertion Added Mucinex and Tessalon perles Admission HPI Per Admitting Provider Yu Daigle is a 68yo female with history of COPD (?dx based on spirometry testing FVC=60% and FEV1 53% of predicted), AKIRA, HTN and DM presenting with 2 weeks of progressive shortness of breath. Patient has had URI symptoms of cough, congestion and sneezing for approximately one week. She has also had progressive dyspnea on exertion. She reports some difficulty climbing stairs today. She has been using her Albuterol nebulizer machine 3x daily with some improvement. She was seen by her PCP on 08/01/23 and given a prescription for Azithromycin and Prednisone which she has been taking without improvement in symptoms. She denies chest pain, palpitations, edema or orthopnea. No fever, chills or sweats. No nausea, vomiting, diarrhea or constipation. No home O2 use. Patient does not use CPAP for AKIRA. Patient reports a similar episode last year at this time which took 3 course of antibiotics and steroids to clear. In the ER she is afebrile, HD stable, hypoxic at 87% on room air which has improved with 2L NC. Patient is visiting her sister in [place] for three weeks and is planning on leaving next Sunday (08/13/23) Principal Dx & Hospital Course #1 = Principal Diagnosis (1) Acute hypoxemic respiratory failure: Patient with acute hypoxemic respiratory failure, saturation of 87% on room air requiring supplemental O2. Likely secondary to underlying COPD + enterovirus infection. Seasonal allergies possibly playing a role as well. Patient overall feels well, improved. CXR no PNA Needs 2NC of O2 with exertion gave one dose of IV Solu Medrol and then finish out previous prednisone taper at home Gave albuterol rescue inhaler to have and can use nebs at home Smoking cessation counseling Continue Guaifenesin 1200mg po BID and added tessalon perles prn cough Flutter valve Patient reports that she was on Anoro in the past, however, this is cost prohibitive. Deaf Interpreter has arranged PACE program discount and Anoro should get sent to home (2) Rhinovirus infection: Supportive care (3) COPD (chronic obstructive pulmonary disease): Patient with likely COPD. Has seen Pulmonary in the past. Was recommended Anoro and was using samples, but, unfortunately has been unable to afford this medication COPD + Rhinovirus likely playing role in patient's current hypoxia. Minimal wheezing appreciated DuoNebs, Albuterol and steroids as above Patient could consider nasal saline washes, Flonase to assist with allergy symptoms (4) DM2 (diabetes mellitus, type 2): Chronic. Patient on Metformin -Hold Metformin but resume on discharge (5) HTN (hypertension), benign: Chronic. Blood pressure stable -Continue Amlodipine 10mg po daily (6) Depression: Chronic. Stable -Continue Escitalopram 20mg po daily Plan Dispo-dc to home, feeling better Discharge Exam Constitutional WD/WN, vitals as above Respiratory normal respiratory effort Auscultation: + wheezes (a few scattered bilat exp); no crackles and no rhonchi Cardiovascular RRR, no murmur, no edema Psychiatric A+Ox3, euthymic affect Updated Medication List Medication Instructions Recorded Confirmed Type cholecalciferol (vitamin D3) 50 2,000 units PO DAILY 02/19/19 08/04/23 History mcg (2,000 unit) capsule aspirin 81 mg chewable tablet 81 mg PO DAILY 10/20/22 08/04/23 History albuterol sulfate 2.5 mg/3 mL 2.5 mg (3 mL) inhalation Q4H PRN 01/26/23 08/04/23 Rx (0.083 %) solution for nebulization shortness of breath or wheezing #75 mL nebulizer accessories #1 ea 01/26/23 08/01/23 Rx nebulizers #1 ea 01/26/23 08/01/23 Rx amlodipine 10 mg tablet 10 mg PO DAILY #90 tabs 03/19/23 08/04/23 Rx escitalopram oxalate 20 mg tablet 20 mg PO DAILY #90 tabs 03/19/23 08/04/23 Rx losartan 100 mg tablet 100 mg PO DAILY #90 tabs 03/19/23 08/04/23 Rx spironolactone 50 mg tablet 50 mg PO QAM #90 tabs 03/19/23 08/04/23 Rx metformin 500 mg tablet 500 mg PO DAILY #30 tabs 05/23/23 08/04/23 Rx lorazepam 0.5 mg tablet (Ativan) 0.5 mg PO DAILY PRN anxiety #20 07/04/23 08/04/23 Rx tabs azithromycin 250 mg tablet See Rx Instructions PO .COMPLEX #6 08/01/23 08/04/23 Rx tabs hydrocodone 5 mg-acetaminophen 325 1 tab PO TID PRN pain #30 tabs 08/01/23 08/04/23 Rx mg tablet prednisone 20 mg tablet 20 mg PO .COMPLEX #30 tabs 08/01/23 08/04/23 Rx albuterol sulfate 90 mcg/actuation 2 inh inhalation QID PRN shortness 08/05/23 Rx aerosol inhaler of breath or wheezing #8.5 grams benzonatate 100 mg capsule 100 mg PO TID PRN cough #20 caps 08/05/23 Rx guaifenesin 600 mg tablet, 1,200 mg (2 x 600 mg) PO Q12 #60 08/05/23 Rx extended release 12 hr (Mucinex) tabs umeclidinium 62.5 mcg-vilanterol 1 inh inhalation DAILY #60 ea 08/05/23 Rx 25 mcg/actuation powdr for inhalation (Anoro Ellipta) Hospital Stay Data Consultations 08/04/23 21:01 ED Decision to Admit Stat Pending Results Patient Have Any Pending Studies at Discharge: No Discharge Instructions Given to Patient (Per Discharging Provider) Please finish out the prednisone taper you already have. You can use your nebulizer or the rescue albuterol inhaler as needed for cough or wheezing. You will need to wear oxygen at 2L via nasal cannula with exertion, but can take it off at rest. Your doctor can tell you when it is safe to no longer wear the oxygen. Please keep your follow up appointment with your PCP. The case maker is working on getting the Anoro inhaler for you at a reduced cost. Total Time Total Time Spent Total Time Spent (In Minutes): 35 min Total Time Includes: Examination of the Patient, Discharge Planning, Medication Reconciliation and Communication With Other Providers (case maker) Coding Level of Care Code 80881 INP/OBS DISCH >30 MIN Diagnoses Acute hypoxemic respiratory failure J96.01 Rhinovirus infection B34.8 Chronic obstructive pulmonary disease, unspecified COPD type J44.9 COPD type: unspecified COPD Type 2 diabetes mellitus without complication, without long-term current use of insulin E11.9 Diabetes mellitus detention insulin use: without detention use Diabetes mellitus complication status: without complication HTN (hypertension), benign I10 Recurrent major depressive disorder, in partial remission F33.41 Depression Type: major depressive disorder Major depression recurrence: recurrent Active/Remission status: in partial remission
== END 2023-08-05 13:33 | disposition home or self-care (01) ==
LOC: SUATTDRO → ED 16:43 → 3N 16:43 → SUATTDRO 21:41 → 3N 22:33